=== PATIENT | male | born 1960 ===

== ENCOUNTER 2017-12-16 17:56 | Inpatient (IN) | payer OTHER ==
[2017-12-16 18:00] VITALS: BMI 29.9
[2017-12-16 18:44] LABS: BASO # 0.03 K/mm3 (0.0-2.0); BASO % 0.2 % (0.0-3.0); EOS # 0.5 (0.0-0.7); EOS % 3.6 % (1.5-5.0); GRAN # 9.78 (1.4-6.5); HEMOGLOBIN 8.6 g/dL (14.0-18.0); LYMPH # 1.5 (1.2-3.4); LYMPH % 12.1 % (22.0-35.0); MEAN CELL VOLUME 83.4 fl (80.0-105.0); MEAN CORPUSCULAR HGB CONC 32.3 g/dl (31.0-37.0); MEAN PLATELET VOLUME 9.5 fl (7.0-11.0); MONO # 0.8 (0.1-0.6); MONO % 6.1 % (1.0-6.0); RBC 3.19 10^6/uL (3.5-6.1); RED CELL DISTRIBUTION WIDTH 15.5 % (11.5-14.5); WHITE BLOOD COUNT 12.5 10^3/ul (4.5-11.0)
[2017-12-16] MEDS ORDERED: Vancomycin 2 GM in Sodium Chloride 0.9% 500 ML IVPB ONE (18:53)
[2017-12-16] MEDS ORDERED: Cefepime IV 2 gm in NS 2 GM/100 ML BAG IVPB STA (18:53)
--- NOTE | 2017-12-16 18:53 | ED PDOC ---
Arrival/HPI - General Historian: Patient, Family (Daughter) - History of Present Illness Time/Duration: Other (2 days) Symptom Onset: Gradual Symptom Course: Worsening <Gerald Fraser - Last Filed: 12/16/17 20:38> <Taylor Mitchell - Last Filed: 12/16/17 22:02> - General Chief Complaint: Cough, Cold, Congestion Time Seen by Provider: 12/16/17 18:06 - History of Present Illness Narrative History of Present Illness (Text): 12/16/17 19:52 This is a 57 yo M with PMH of DMII on insulin, HTN, HLD, anemia, and CAD/OK s/p CABG (3 yrs prior) who presents with complaints of fever, malaise, weakness, shortness of breath x2 days. As per daughter, patient is a [place] who is visiting her in [place], flew up 2 days prior, was being treating for ear infection at time of travel by his PMD in [place]. Daughter reports that since arrival, patient has complained of malaise, weakness, and worsening shortness of breath. Also reports subjective fever at home yesterday, never measured. Overnight, he coughed up a dark red blood clot the size of a quarter, no further episodes of hemoptysis or hematemesis. Denies nausea, emesis, PO intolerance, but does admit to melena for several days, and then later admitted to NSAID usage for last 2-3 days for ear pain. Does admit to history of anemia , on plavix for CABG, and does admit to taking Motrin several times a day for last 2 days due to ear pain. Dyspnic on exertion and at rest, denies room spinning sensation, dizziness, near syncope, syncope. As per daughter, so dyspnic today that had to bend over and catch his breath walking from the car to the ED entrance. No LE edema or asymmetrical swelling/erythema/tenderness. All other ROS in 12-system review negative. Of note, found to have temp of 102.8F on arrival, improved to 100F with tylenol. PMH: as above PSH: CABG Fam Hx: unsure, denies fam hx of GI bleed Soc Hx: intermittent rare cigarette (less than 1 pack per month, intermittently , for approx 5 years), admits social EtOH (denies any binge episodes in last 4 weeks), denies illicits/IVDA PMD: has PMD in [place], follows regularly, last saw 1 week ago for ear ache /fullness and was tx with oral antibiotic (Gerald Fraser) Modifying Factors (Text): 12/16/17 20:46 worsening fatigue, malaise, shortness of breath progressively over 2 days ( Gerald Fraser) Past Medical History - Provider Review Nursing Documentation Reviewed: Yes - Infectious Disease Hx of Infectious Diseases: None - Cardiac Hx Hypertension: Yes - Endocrine/Metabolic Hx Diabetes Mellitus Type 1: Yes - Psychiatric Hx Substance Use: No - Surgical History Hx Open Heart Surgery: Yes Other/Comment: R shoulder surgery - Anesthesia Hx Anesthesia Reactions: No Hx Malignant Hyperthermia: No <Gerald Fraser - Last Filed: 12/16/17 20:38> Family/Social History - Physician Review Nursing Documentation Reviewed: Yes Family/Social History: Unknown Family HX (negative for any hx of GI bleed) Smoking Status: Former Smoker Hx Alcohol Use: Yes Frequency of alcohol use: Socially Hx Substance Use: No <Gerald Fraser - Last Filed: 12/16/17 20:38> Allergies/Home Meds <Gerald Fraser - Last Filed: 12/16/17 20:38> <Taylor Mitchell - Last Filed: 12/16/17 22:02> Allergies/Adverse Reactions: Allergies No Known Allergies Allergy (Verified 12/16/17 17:59) Home Medications: Home Meds Medication Instructions Recorded Confirmed Atorvastatin [Lipitor] 40 mg PO DAILY 12/16/17 12/16/17 Clopidogrel [Plavix] 75 mg PO DAILY 12/16/17 12/16/17 Review of Systems - Physician Review All systems were reviewed & negative as marked: Yes (as per HPI) - Review of Systems Constitutional: Fatigue, Fevers. absent: Normal Eyes: absent: Vision Changes ENT: absent: Sore Throat, Epistaxis Respiratory: SOB, Cough, Other (1x quarter sized dark blood clot coughed up, night prior to admission only, no bright red blood). absent: Sputum, Wheezing Cardiovascular: VANEGAS. absent: Chest Pain, Palpitations, Calf Pain, Syncope Gastrointestinal: Nausea, Other (Melena intermittently x2-3 days). absent: Abdominal Pain, Vomiting, Hematochezia, Hematemesis Genitourinary Male: Normal. absent: Dysuria, Frequency, Hematuria Musculoskeletal: Myalgias, Other (malaise, generalized weakness). absent: Neck Pain Skin: absent: Rash, Pruritis Neurological: absent: Focal Weakness, Gait Changes <Gerald Fraser - Last Filed: 12/16/17 20:38> Physical Exam Vital Signs Reviewed: Yes Temperature: Febrile Blood Pressure: Hypertensive Pulse: Tachycardic (tachy on arrival, normocardic on exam in low 90's) Respiratory Rate: Normal Appearance: Positive for: Non-Toxic, Ill-Appearing, Uncomfortable Pain Distress: Mild Mental Status: Positive for: Alert and Oriented X 3 (self, location, year) Finger Stick Blood Glucose: 270 - Systems Exam Head: Present: Atraumatic, Normocephalic Pupils: Present: PERRL. No: Pinpoint Extroacular Muscles: Present: EOMI Conjunctiva: Present: Normal. No: Injected, Icteric Mouth: Present: Dry, Normal Lips, Normal Tounge, Normal Teeth. No: Moist Mucous Membranes, Drooling Nose (External): Present: Atraumatic. No: Abrasion, Laceration Nose (Internal): Present: No Active Bleeding. No: Epistaxis Neck: Present: Normal Range of Motion, Trachea Midline. No: MIDLINE TENDERNESS , JVD Respiratory/Chest: Present: Clear to Auscultation, Good Air Exchange. No: Respiratory Distress, Accessory Muscle Use, Wheezes, Decreased Breath Sounds, Rales, Rhonchi, Tachypneic Cardiovascular: Present: Regular Rate and Rhythm, Normal S1, S2, Peripheal Pulses Present (+2 radials, +1 dorsalis pedis bilaterally). No: Murmurs, Irregular Rhythm, Tachycardic, Bradycardic Abdomen: Present: Normal Bowel Sounds. No: Tenderness (mild static discomfort, no tenderness to palpation), Distention, Mass/Organomegaly Upper Extremity: Present: Normal Inspection, Normal ROM, NORMAL PULSES. No: Cyanosis, Edema, Tenderness, Swelling, Erythema, Deformity Lower Extremity: Present: Normal Inspection, NORMAL PULSES, Normal ROM. No: Edema, CALF TENDERNESS, Cyanosis, Tenderness, Swelling, Erythema, Deformity Neurological: Present: GCS=15, Speech Normal, Motor Func Grossly Intact, Normal Sensory Function Skin: Present: Warm, Dry, Pale. No: Rashes, Normal Color Lymphatic: No: Cervical Adenopathy Psychiatric: Present: Alert, Oriented x 3, Normal Insight, Normal Concentration , Normal Affect, Normal Mood <Gerald Fraser - Last Filed: 12/16/17 20:38> <Taylor Mitchell - Last Filed: 12/16/17 22:02> Vital Signs Temp Pulse Resp BP Pulse Ox 12/16/17 20:00 100 F H 98 H 16 132/68 98 12/16/17 18:33 102.8 F H 12/16/17 17:57 102.8 F H 120 H 22 159/77 H 99 Medical Decision Making Reassessment Condition: Re-examined, Unchanged <Gerald Fraser - Last Filed: 12/16/17 20:38> <Taylor Mitchell - Last Filed: 12/16/17 22:02> ED Course and Treatment: 12/16/17 20:08 Ddx: Upper vs lower GI bleed 2/2 plavix +/- NSAID use, r/o sepsis given fever, r /o PE given recent flight and coughing up a blood clot -CBC obtained, concerning for WBC of 12.5, Hgb 8.6, but in setting of dry appearing patient and BUN:Cr ratio suggestive of mild dehydration, real Hgb likely lower, will need to transfuse given melanotic stool and hx of CABG, goal Hgb is 9-10. Type and cross ordered, blood consent obtained, pending transfusion 2 units pRBCs. -Protonix IV 80mg IVP x1 for suspected GI bleed, NPO -Lactate 3.0, fever, and tachy on arrival with recent ear infection concerning for sepsis, CODE Sepsis called, empirically covered with Vanco and Cefepime IVPB x1 each -Given blood clot and recent air travel, CTA chest ordered to rule out PE, Cr 1.0 so safe for dye challenge -2L LR bolus ordered 12/16/17 21:02 Case discussed with Admitting Physician non destructive evaluation specialist, Dr. Fung, who agrees with admission for suspected GI bleed requiring transfusion. Requests Dr. Coe for GI consult, Protonix and IV fluids, NPO. Inpatient admission to telemetry as hemodynamically stable and not actively passing blood per rectum. Patient seen, reviewed, and discussed with attending, Dr. Mitchell. (Gerald Fraser) - Lab Interpretations Lab Results: 12/16/17 18:18 12/16/17 18:18 Lab Results 12/16/17 20:31: Blood Type O POSITIVE, Antibody Screen Negative, Crossmatch See Detail, BBK History Checked No verified bt 12/16/17 18:43: Urine Color Yellow, Urine Appearance Clear, Urine pH 6.0, Ur Specific [place] 1.010, Urine Protein Negative, Urine Glucose (UA) >=1000, Urine Ketones Negative, Urine Blood Small H, Urine Nitrate Negative, Urine Bilirubin Negative, Urine Urobilinogen 0.2, Ur Leukocyte Esterase Negative, Urine RBC 5 - 10, Urine WBC 10 - 15, Ur Epithelial Cells 0 - 2, Urine Bacteria Few 12/16/17 18:23: POC Glucose (mg/dL) 270 H 12/16/17 18:18: Sodium 134, Chloride 99, Potassium 3.8, Carbon Dioxide 22, Anion Gap 17, BUN 21, Creatinine 1.0, Est GFR ( Amer) > 60, Est GFR (Non- Af Amer) > 60, Random Glucose 310 H*, Calcium 8.1 L, Phosphorus 1.9 L, Magnesium 2.2, Total Bilirubin 0.5, AST 88 H, ALT 77 H, Alkaline Phosphatase 200 H, Troponin I < 0.01, NT-Pro-B Natriuret Pep 190, Total Protein 8.2, Albumin 3.6, Globulin 4.6, Albumin/Globulin Ratio 0.8 L 12/16/17 18:18: pO2 36, VBG pH 7.34, VBG pCO2 45.0, VBG HCO3 24.3, VBG Total CO2 25.7, VBG O2 Sat (Calc) 74.9 H, VBG Base Excess -1.7 L, VBG Potassium 3.7, Sodium 132.0, Chloride 100.0, Glucose 326 H, Lactate 3.0 H, FiO2 21.0, Venous Blood Potassium 3.7 12/16/17 18:18: PT 15.4 H, INR 1.34 H, APTT 25.8 12/16/17 18:18: WBC 12.5 H, RBC 3.19 L, Hgb 8.6 L, Hct 26.6 L, MCV 83.4, MCH 27.0, MCHC 32.3, RDW 15.5 H, Plt Count 184, MPV 9.5, Gran % 78.0 H, Lymph % ( Auto) 12.1 L, [place] % (Auto) 6.1 H, Eos % (Auto) 3.6, Baso % (Auto) 0.2, Gran # 9.78 H, Lymph # (Auto) 1.5, [place] # (Auto) 0.8 H, Eos # (Auto) 0.5, Baso # (Auto ) 0.03 - RAD Interpretation Radiology Orders: 12/16/17 18:09 CHEST PORTABLE [RAD] Stat 12/16/17 20:11 ANGIO CHEST PE PROTOCOL [CT] Stat - Medication Orders Current Medication Orders: Lactated Ringer's (Lactated Ringer's) 1,000 mls @ 999 mls/hr IV .Q1H1M MARYANNE Last Admin: 12/16/17 19:51 Dose: 999 mls/hr eMAR Start Stop Document 12/16/17 19:51 RG (Rec: 12/16/17 19:57 RG [id number]) Intravenous Solution Start Date 12/16/17 Start Time 19:51 Sodium Chloride (Sodium Chloride 0.9%) 1,000 mls @ 125 mls/hr IV .Q8H MARYANNE Pantoprazole Sodium (Protonix Inj) 40 mg IVP Q12 MARYANNE Discontinued Medications Acetaminophen (Tylenol 325mg Tab) 975 mg PO STAT STA Stop: 12/16/17 18:14 Last Admin: 12/16/17 18:33 Dose: 975 mg MAR Pain/Vitals Document 12/16/17 18:33 OCS (Rec: 12/16/17 18:33 OCS [id number]) Pain Reassessment Is This A Pain ReAssessment? No Sleep Is patient sleeping during reassessment? No Presence of Pain Presence of Pain Yes Pain Scale Used Pain Scale Used Numeric Location Pain Location Body Site Abdomen Description Constant Intensity 3 Scale Used Numeric Vitals Temperature (97.6 F-99.6 F) 102.8 F Temperature Source Oral Lactated Ringer's 1,000 ml/ IV (SUPPLIES) 1,000 mls @ 81,565.35 mls/hr IV ONCE ONE PRN Reason: 999 ML/KG/HR Stop: 12/16/17 18:10 Last Admin: 12/16/17 18:31 Dose: 81,565.35 mls/hr eMAR Start Stop Document 12/16/17 18:31 OCS (Rec: 12/16/17 18:31 OCS [id number]) Intravenous Solution Start Date 12/16/17 Start Time 18:31 Cefepime HCl (Maxipime 2gm) 2 gm in 100 mls @ 100 mls/hr IVPB STAT STA PRN Reason: Protocol Stop: 12/16/17 19:52 Last Admin: 12/16/17 19:15 Dose: 100 mls/hr eMAR Start Stop Document 12/16/17 19:15 RG (Rec: 12/16/17 19:26 RG [id number]) Intravenous Solution Start Date 12/16/17 Start Time 19:15 Vancomycin HCl 2 gm/ Sodium (Chloride) 500 mls @ 170 mls/hr IVPB ONCE ONE PRN Reason: Protocol Stop: 12/16/17 21:49 Last Admin: 12/16/17 19:50 Dose: 170 mls/hr eMAR Start Stop Document 12/16/17 19:50 RG (Rec: 12/16/17 19:50 RG [id number]) Intravenous Solution Start Date 12/16/17 Start Time 19:50 Pantoprazole Sodium (Protonix Inj) 80 mg IVP STAT STA Stop: 12/16/17 20:16 - PA / SAWMILL SUPERVISOR / Resident Statement / has reviewed & agrees with the documentation as recorded. <Taylor Mitchell - Last Filed: 12/16/17 22:02> Disposition/Present on Arrival - Present on Arrival Any Indicators Present on Arrival: No History of DVT/PE: No History of Uncontrolled Diabetes: No Urinary Catheter: No History of Decub. Ulcer: No History Surgical Site Infection Following: CABG - Mediastinitis - Disposition Have Diagnosis and Disposition been Completed?: Yes Disposition Time: 21:22 Patient Plan: Admission, Telemetry <Gerald Fraser - Last Filed: 12/16/17 20:38> <Taylor Mitchell - Last Filed: 12/16/17 22:02> - Disposition Diagnosis: GI bleed, Symptomatic anemia Disposition: HOSPITALIZED Condition: GUARDED
[2017-12-16 18:59] LABS: URINE BILIRUBIN NEGATIVE (NEGATIVE); URINE BLOOD SMALL (NEGATIVE); URINE GLUCOSE (UA) >=1000 mg/dL (NEGATIVE); URINE LEUKOCYTE ESTERASE NEGATIVE Leu/uL (NEGATIVE); URINE PROTEIN NEGATIVE mg/dL (<30 mg/dL); URINE UROBILINOGEN 0.2 E.U./dL (<1 E.U./dL)
[2017-12-16 19:00] LABS: VENOUS BLOOD GAS BASE EXCESS -1.7 mmol/L (0.0-2.0); VENOUS BLOOD GAS PO2 36 mm/Hg (30-55); VENOUS BLOOD PH 7.34 (7.32-7.43)
[2017-12-16 19:08] LABS: INR 1.34 (0.93-1.08); PARTIAL THROMBOPLASTIN TIME 25.8 Seconds (25.1-36.5); PROTHROMBIN TIME 15.4 SECONDS (9.4-12.5)
[2017-12-16 19:08] LABS: URINE APPEARANCE CLEAR (CLEAR); URINE COLOR YELLOW (YELLOW)
[2017-12-16 19:15] LABS: URINE BACTERIA FEW (NEG); URINE EPITHELIAL CELLS 0 - 2 /hpf (0-5)
[2017-12-16 19:18] LABS: ALB/GLOB RATIO 0.8 (1.1-1.8); ALBUMIN 3.6 g/dL (3.0-4.8); ALT/SGPT 77 U/L (7-56); AST/SGOT 88 U/L (17-59); B-TYPE NATRIURETIC PEPTIDE 190 pg/mL (0-450); BLOOD UREA NITROGEN 21 mg/dL (7-21); CALCIUM 8.1 mg/dL (8.4-10.5); GFR NON-AFRICAN AMERICAN > 60; TROPONIN I < 0.01 ng/mL
[2017-12-16] MEDS ORDERED: Lactated Ringer's 1,000 ML IV SCH (19:45)
[2017-12-16] MEDS ORDERED: Iohexol 350 MG/100 ML VIAL ONE (20:16)
[2017-12-16] MEDS: Sodium Chloride 0.9% 1,000 ML IV SCH (20:59)
[2017-12-16 22:08] LABS: VENOUS BLOOD GAS BASE EXCESS 1.8 mmol/L (0.0-2.0); VENOUS BLOOD GAS PO2 175 mm/Hg (30-55); VENOUS BLOOD PH 7.45 (7.32-7.43)
[2017-12-16] MEDS ORDERED: Alum-Mag Hydrox-Simethicone Susp (30 mL) PO ONE (23:59)
--- NOTE | 2017-12-17 04:08 | CP.PCM.PN ---
Subjective - Date & Time of Evaluation Date of Evaluation: 12/17/17 Time of Evaluation: 04:04 - Subjective Subjective: Patient was seen for 100.8*F. Had received tylenol 975 mg at 19:33 for temp: 102.8*F. Still had temp of 100.8*F. Patient was seen at bedside. Has no complaints. No sob, chest pain. Medical record was reviewed. This 57 year old woman was admitted with fever, sob, malaise,weakness,anemia,GI bleeding. Has PMH of HTN, DMII, HLD, obeisity, anemia, CAD, S/P CABG. Objective - Vital Signs/Intake and Output Vital Signs (last 24 hours): Temp Pulse Resp BP Pulse Ox 98.3 F 73 16 132/64 98 12/17/17 03:39 12/17/17 03:39 12/17/17 03:39 12/17/17 03:39 12/16/17 20:00 Intake and Output: 12/16/17 12/17/17 18:59 06:59 Intake Total 300 Balance 300 - Medications Medications: Current Medications Lactated Ringer's (Lactated Ringer's) 1,000 mls @ 999 mls/hr IV .Q1H1M [facility] Last Admin: 12/16/17 19:51 Dose: 999 mls/hr Sodium Chloride (Sodium Chloride 0.9%) 1,000 mls @ 125 mls/hr IV .Q8H [facility] Last Admin: 12/16/17 20:59 Dose: 125 mls/hr Pantoprazole Sodium (Protonix Inj) 40 mg IVP Q12 [facility] - Labs Labs: PT 15.4 SECONDS (9.4-12.5) H 12/16/17 18:18 INR 1.34 (0.93-1.08) H 18 18:18 APTT 25.8 Seconds (25.1-36.5) 12/16/17 18:18 Most Recent Lab Values WBC 12.5 10^3/ul (4.5-11.0) H 12/16/17 18:18 RBC 3.19 10^6/uL (3.5-6.1) L 12/16/17 18:18 Hgb 8.6 g/dL (14.0-18.0) L 06/17/18 18:18 Hct 26.6 % (42.0-52.0) L 12/16/17 18:18 MCV 83.4 fl (80.0-105.0) 12/16/17 18:18 MCH 27.0 pg (25.0-35.0) 18 18:18 MCHC 32.3 g/dl (31.0-37.0) 12/16/17 18:18 RDW 15.5 % (11.5-14.5) H 18 18:18 Plt Count 184 10^3/uL (120.0-450.0) 12/16/17 18:18 MPV 9.5 fl (7.0-11.0) 12/16/17 18:18 Gran % 78.0 % (50.0-68.0) H 18 18:18 Lymph % (Auto) 12.1 % (22.0-35.0) L 12/16/17 18:18 Major % (Auto) 6.1 % (1.0-6.0) H 18 18:18 Eos % (Auto) 3.6 % (1.5-5.0) 18 18:18 Baso % (Auto) 0.2 % (0.0-3.0) 12/16/17 18:18 Gran # 9.78 (1.4-6.5) H 18 18:18 Lymph # (Auto) 1.5 (1.2-3.4) 12/16/17 18:18 Major # (Auto) 0.8 (0.1-0.6) H 18 18:18 Eos # (Auto) 0.5 (0.0-0.7) 12/16/17 18:18 Baso # (Auto) 0.03 K/mm3 (0.0-2.0) 18 18:18 PT 15.4 SECONDS (9.4-12.5) H 18 18:18 INR 1.34 (0.93-1.08) H 18 18:18 APTT 25.8 Seconds (25.1-36.5) 12/16/17 18:18 pO2 175 mm/Hg (30-55) H 12/16/17 21:57 VBG pH 7.45 (7.32-7.43) H 12/16/17 21:57 VBG pCO2 37.0 (40-60) L 12/16/17 21:57 VBG HCO3 25.7 mmol/l (21-28) 12/16/17 21:57 VBG Total CO2 26.8 mmol.L (22-28) 12/16/17 21:57 VBG O2 Sat (Calc) 100.1 % (40-65) H 12/16/17 21:57 VBG Base Excess 1.8 mmol/L (0.0-2.0) 12/16/17 21:57 VBG Potassium 3.4 mmol/L (3.6-5.2) L 12/16/17 21:57 Sodium 135.0 mmol/L (132-148) 12/16/17 21:57 Chloride 107.0 mmol/L (98-107) 12/16/17 21:57 Glucose 114 mg/dl (75-110) H 12/16/17 21:57 Lactate 1.3 mmol/L (0.7-2.1) 12/16/17 21:57 FiO2 21.0 % 12/16/17 21:57 Sodium 134 mmol/L (132-148) 12/16/17 18:18 Potassium 3.8 mmol/L (3.6-5.0) 12/16/17 18:18 Chloride 99 mmol/L (98-107) 12/16/17 18:18 Carbon Dioxide 22 mmol/L (21-33) 12/16/17 18:18 Anion Gap 17 (10-20) 12/16/17 18:18 BUN 21 mg/dL (7-21) 12/16/17 18:18 Creatinine 1.0 mg/dl (0.8-1.5) 12/16/17 18:18 Est GFR ( Amer) > 60 12/16/17 18:18 Est GFR (Non-Af Amer) > 60 18 18:18 POC Glucose (mg/dL) 270 mg/dL (65-110) H 12/16/17 18:23 Random Glucose 310 mg/dL (70-110) H* 12/16/17 18:18 Calcium 8.1 mg/dL (8.4-10.5) L 12/16/17 18:18 Phosphorus 1.9 mg/dL (2.5-4.5) L 12/16/17 18:18 Magnesium 2.2 mg/dL (1.7-2.2) 12/16/17 18:18 Total Bilirubin 0.5 mg/dL (0.2-1.3) 12/16/17 18:18 AST 88 U/L (17-59) H 12/16/17 18:18 ALT 77 U/L (7-56) H 12/16/17 18:18 Alkaline Phosphatase 200 U/L (38-126) H 12/16/17 18:18 Troponin I < 0.01 ng/mL 12/16/17 18:18 NT-Pro-B Natriuret Pep 190 pg/mL (0-450) 12/16/17 18:18 Total Protein 8.2 g/dL (5.8-8.3) 12/16/17 18:18 Albumin 3.6 g/dL (3.0-4.8) 12/16/17 18:18 Globulin 4.6 gm/dL 12/16/17 18:18 Albumin/Globulin Ratio 0.8 (1.1-1.8) L 12/16/17 18:18 Venous Blood Potassium 3.4 mmol/L (3.6-5.2) L 12/16/17 21:57 Urine Color Yellow (YELLOW) 12/16/17 18:43 Urine Appearance Clear (CLEAR) 12/16/17 18:43 Urine pH 6.0 (4.7-8.0) 12/16/17 18:43 Ur Specific [place] 1.010 (1.005-1.035) 12/16/17 18:43 Urine Protein Negative mg/dL (<30 mg/dL) 12/16/17 18:43 Urine Glucose (UA) >=1000 mg/dL (NEGATIVE) 12/16/17 18:43 Urine Ketones Negative mg/dL (NEGATIVE) 12/16/17 18:43 Urine Blood Small (NEGATIVE) H 12/16/17 18:43 Urine Nitrate Negative (NEGATIVE) 12/16/17 18:43 Urine Bilirubin Negative (NEGATIVE) 12/16/17 18:43 Urine Urobilinogen 0.2 E.U./dL (<1 E.U./dL) 12/16/17 18:43 Ur Leukocyte Esterase Negative Ymailex/uL (NEGATIVE) 12/16/17 18:43 Urine RBC 5 - 10 /hpf (0-2) 12/16/17 18:43 Urine WBC 10 - 15 /hpf (0-6) 12/16/17 18:43 Ur Epithelial Cells 0 - 2 /hpf (0-5) 12/16/17 18:43 Urine Bacteria Few (NEG) 12/16/17 18:43 Blood Type O POSITIVE 12/16/17 20:31 Blood Type Confirm O POSITIVE 12/16/17 20:57 Antibody Screen Negative 12/16/17 20:31 Crossmatch See Detail 12/16/17 20:31 BBK History Checked No verified bt 12/16/17 20:31 - Constitutional Appears: Well, No Acute Distress - Head Exam Head Exam: ATRAUMATIC, NORMAL INSPECTION, NORMOCEPHALIC - Eye Exam Eye Exam: Normal appearance - ENT Exam ENT Exam: Normal External Ear Exam - Neck Exam Neck Exam: Normal Inspection - Respiratory Exam Respiratory Exam: NORMAL BREATHING PATTERN - Cardiovascular Exam Cardiovascular Exam: absent: JVD - GI/Abdominal Exam GI & Abdominal Exam: absent: Distended - Rectal Exam Rectal Exam: NORMAL INSPECTION - Exam Exam: NORMAL INSPECTION Additional comments: Deferred. - Extremities Exam Extremities Exam: Normal Inspection - Back Exam Back Exam: NORMAL INSPECTION - Neurological Exam Neurological Exam: Alert, Awake, Oriented x3 - Psychiatric Exam Psychiatric exam: Normal Affect, Normal Mood - Skin Skin Exam: Normal Color Assessment and Plan - Assessment and Plan (Free Text) Assessment: Fever not helped by tylenol 975 mg . Anemia. GI bleeding. HTN. HLD. DM II. CAD. Plan: Motrin with mylanta(One time only.) Continue blood transfusion. Continue present management.
[2017-12-17] MEDS ORDERED: Sodium Phosphate 15 MMOLE in Dextrose 5% In Water 250 ML IVPB ONE (04:15)
--- NOTE | 2017-12-17 06:43 | CP.PCM.CON ---
<Petty Villanueva - Last Filed: 12/17/17 10:19> History of Present Illness - History of Present Illness History of Present Illness: GI Consult Note for Nikko Anand PGY2 This is a 57yo [place] male with past medical history of IDDM, CAD, HTN, HLD who came to ED for fever, weakness and shortness of breath for 2 days. He recently came in from [place] a couple of days ago. He was having subjective fevers at home and coughed up one clot of dark red blood once. Patient states he has had some dark colored stool. He was recently treated for an ear infection in [place]. He was on PO antibiotics (unsure of the name) and was taking NSAIDs for the pain. Patient is also on Plavix at home. He denies having a colonoscopy or EGD in the past. He does follow up with his PMD in [place] regularly. He denies any history of anemia or GI bleed. In ED, patient had CTA of chest which was negative for PE. He was given 2U PRBC. He had mild fever after blood transfusion, but is afebrile this am. CTA imaging reviewed which showed hepatomegaly. This am, patient denies chest pain, shortness of breath, abdominal pain, nausea/vomiting/diarrhea, fever/chills, numbness/tingling, melena, numbness/tingling, fever or chills. Patient does come from [place] where medical resources are harder to obtain at this time. He does not have any insulin at home. Past medical history: IDDM, CAD, HTN, HLD Past surgical history: CABG (3yrs ago) Home meds: Reviewed as per MAR. Patient reports he takes more medications but is unsure of the names. Allergies: NKDA Social history: Lives in [place]. Drinks EtOH socially, Intermittent tobacco use, denies illicit drug use. Family history: Patient denies hx of cancer in his family Review of Systems - Review of Systems All systems: reviewed and no additional remarkable complaints except Review of Systems: 12 point ROS reviewed as per HPI and are otherwise negative. Past Patient History - Infectious Disease Hx of Infectious Diseases: None - Past Social History Smoking Status: Never Smoked - CARDIAC Hx Hypertension: Yes - ENDOCRINE/METABOLIC Hx Diabetes Mellitus Type 1: Yes - MUSCULOSKELETAL/RHEUMATOLOGICAL Hx Falls: No - PSYCHIATRIC Hx Substance Use: No - SURGICAL HISTORY Hx Open Heart Surgery: Yes Other/Comment: R shoulder surgery - ANESTHESIA Hx Anesthesia Reactions: No Hx Malignant Hyperthermia: No Meds Allergies/Adverse Reactions: Allergies Allergy/AdvReac Type Severity Reaction Status Date / Time No Known Allergies Allergy Verified 12/16/17 17:59 - Medications Medications: Current Medications Lactated Ringer's (Lactated Ringer's) 1,000 mls @ 999 mls/hr IV .Q1H1M MARYANNE Last Admin: 12/16/17 19:51 Dose: 999 mls/hr Sodium Chloride (Sodium Chloride 0.9%) 1,000 mls @ 125 mls/hr IV .Q8H [facility] Last Admin: 12/16/17 20:59 Dose: 125 mls/hr Sodium Phosphate 15 mmole/ (Dextrose) 255 mls @ 42.5 mls/hr IVPB ONCE ONE Stop: 12/17/17 10:14 Last Admin: 12/17/17 05:57 Dose: 42.5 mls/hr Pantoprazole Sodium (Protonix Inj) 40 mg IVP Q12 [facility] Physical Exam - Constitutional Appears: No Acute Distress - Head Exam Head Exam: ATRAUMATIC, NORMAL INSPECTION, NORMOCEPHALIC - Eye Exam Eye Exam: Normal appearance, PERRL Pupil Exam: NORMAL ACCOMODATION, PERRL - ENT Exam ENT Exam: Mucous Membranes Moist - Respiratory Exam Respiratory Exam: Clear to Auscultation Bilateral, NORMAL BREATHING PATTERN. absent: Rales, Rhonchi, Wheezes - Cardiovascular Exam Cardiovascular Exam: REGULAR RHYTHM, +S1, +S2. absent: Gallop, Rubs, Systolic Murmur - GI/Abdominal Exam GI & Abdominal Exam: Normal Bowel Sounds, Organomegaly (hepatomegaly ), Soft, Tenderness (mild epigastric ). absent: Mass, Rigid - Extremities Exam Extremities exam: Positive for: pedal edema. Negative for: calf tenderness - Neurological Exam Neurological exam: Alert, CN II-XII Intact - Skin Skin Exam: Dry, Warm Results - Vital Signs Recent Vital Signs: Last Vital Signs Temp 98.3 F 12/17/17 06:00 Pulse 72 12/17/17 06:00 Resp 16 12/17/17 06:00 BP 126/75 12/17/17 06:00 Pulse Ox 99 12/17/17 06:00 - Labs Result Diagrams: 12/17/17 07:30 12/17/17 07:30 Labs: Laboratory Results - last 24 hr 12/16/17 12/16/17 20:57 21:57 pO2 175 H VBG pH 7.45 H VBG pCO2 37.0 L VBG HCO3 25.7 VBG Total CO2 26.8 VBG O2 Sat (Calc) 100.1 H VBG Base Excess 1.8 VBG Potassium 3.4 L Sodium 135.0 Chloride 107.0 Glucose 114 H Lactate 1.3 FiO2 21.0 Venous Blood Potassium 3.4 L Blood Type Confirm O POSITIVE Assessment & Plan - Assessment and Plan (Free Text) Assessment: This is a 57yo [place] male with past medical history of IDDM, CAD, HTN, HLD who was admitted for 1. Anemia - Can be secondary to GI bleed (pt using NSAID at home) - S/p 2U PRBC 2. Transaminitis - with elevated alk phos - this can be drug induced 3. CAD on Plavix 4. HTN 5. IDDM Plan: Will obtain abdominal U/S. Will get iron studies, reticulocyte count, B12 and folate levels of Pre-transfusion bloodwork. Hep panel pending. Will place patient on insulin sliding scale for IDDM. Will get ict educator for lack of insulin at home as well as education. Patient is NPO and on IV fluids. Continue PPI. Plan is for EGD tomorrow. Recommend cardiology consult for risk assessment for EGD. Will continue to monitor H/H. Case seen, discussed and reviewed with Dr. Coe. Nikko Villanueva PGY2 - Date & Time Date: 12/17/17 Time: 10:38 <Josseline Coe V - Last Filed: 12/17/17 19:14> Meds - Medications Medications: Current Medications Acetaminophen (Tylenol 325mg Tab) 650 mg PO Q6H PRN PRN Reason: Fever >100.4 F Last Admin: 12/17/17 13:56 Dose: 650 mg Atorvastatin Calcium (Lipitor) 40 mg PO DAILY MARYANNE Sodium Chloride (Sodium Chloride 0.9%) 1,000 mls @ 100 mls/hr IV .Q10H [facility]NE Insulin Human Lispro (Humalog Med) 0 units SC ACHS MARYANNE PRN Reason: Protocol Last Admin: 12/17/17 18:27 Dose: 5 unit Pantoprazole Sodium (Protonix Inj) 40 mg IVP Q12 [facility] Last Admin: 12/17/17 09:28 Dose: 40 mg Polyethylene Glycol (Miralax) 17 gm PO BID MARYANNE Last Admin: 12/17/17 18:27 Dose: 17 gm Results - Vital Signs Recent Vital Signs: Last Vital Signs Temp 98.9 F 12/17/17 18:00 Pulse 97 H 12/17/17 18:00 Resp 21 12/17/17 18:00 BP 161/96 H 12/17/17 18:00 Pulse Ox 99 12/17/17 06:00 - Labs Result Diagrams: 12/17/17 07:30 12/17/17 07:30 Labs: Laboratory Results - last 24 hr 12/16/17 12/16/17 12/17/17 20:57 21:57 07:30 WBC 10.9 RBC 3.57 Hgb 10.0 L Hct 30.1 L MCV 84.3 MCH 28.0 MCHC 33.2 RDW 15.5 H Plt Count 147 MPV 8.9 Gran % 69.8 H Lymph % (Auto) 11.6 L Mcnairy % (Auto) 9.8 H Eos % (Auto) 8.3 H Baso % (Auto) 0.5 Gran # 7.62 H Lymph # (Auto) 1.3 Mcnairy # (Auto) 1.1 H Eos # (Auto) 0.9 H Baso # (Auto) 0.05 Retic Count pO2 175 H VBG pH 7.45 H VBG pCO2 37.0 L VBG HCO3 25.7 VBG Total CO2 26.8 VBG O2 Sat (Calc) 100.1 H VBG Base Excess 1.8 VBG Potassium 3.4 L Sodium 135.0 Chloride 107.0 Glucose 114 H Lactate 1.3 FiO2 21.0 Potassium Carbon Dioxide Anion Gap BUN Creatinine Est GFR ( Amer) Est GFR (Non-Af Amer) POC Glucose (mg/dL) Random Glucose Hemoglobin A1c Calcium Iron TIBC % Saturation Ferritin Total Bilirubin AST ALT Alkaline Phosphatase Total Protein Albumin Globulin Albumin/Globulin Ratio Vitamin B12 Folate Venous Blood Potassium 3.4 L Hepatitis A IgM Ab Hep Bs Antigen Hep B Core IgM Ab Hepatitis C Antibody Blood Type Confirm O POSITIVE 12/17/17 12/17/17 12/17/17 07:30 07:30 10:35 WBC RBC Hgb Hct MCV MCH MCHC RDW Plt Count MPV Gran % Lymph % (Auto) Mcnairy % (Auto) Eos % (Auto) Baso % (Auto) Gran # Lymph # (Auto) Mcnairy # (Auto) Eos # (Auto) Baso # (Auto) Retic Count pO2 VBG pH VBG pCO2 VBG HCO3 VBG Total CO2 VBG O2 Sat (Calc) VBG Base Excess VBG Potassium Sodium 142 Chloride 109 H Glucose Lactate FiO2 Potassium 3.8 Carbon Dioxide 23 Anion Gap 13 BUN 15 Creatinine 0.9 Est GFR ( Amer) > 60 Est GFR (Non-Af Amer) > 60 POC Glucose (mg/dL) Random Glucose 131 H Hemoglobin A1c 10.1 H Calcium 7.6 L Iron TIBC % Saturation Ferritin Total Bilirubin 1.1 AST 49 ALT 60 H Alkaline Phosphatase 140 H D Total Protein 6.6 Albumin 2.6 L Globulin 4.1 Albumin/Globulin Ratio 0.6 L Vitamin B12 Folate Venous Blood Potassium Hepatitis A IgM Ab Negative Hep Bs Antigen Negative Hep B Core IgM Ab Negative Hepatitis C Antibody Negative Blood Type Confirm 12/17/17 12/17/17 12/17/17 10:57 10:57 10:57 WBC RBC Hgb Hct MCV MCH MCHC RDW Plt Count MPV Gran % Lymph % (Auto) Mcnairy % (Auto) Eos % (Auto) Baso % (Auto) Gran # Lymph # (Auto) Mcnairy # (Auto) Eos # (Auto) Baso # (Auto) Retic Count 1.55 H pO2 VBG pH VBG pCO2 VBG HCO3 VBG Total CO2 VBG O2 Sat (Calc) VBG Base Excess VBG Potassium Sodium Chloride Glucose Lactate FiO2 Potassium Carbon Dioxide Anion Gap BUN Creatinine Est GFR ( Amer) Est GFR (Non-Af Amer) POC Glucose (mg/dL) Random Glucose Hemoglobin A1c Calcium Iron 29 L TIBC 301 % Saturation 10 L Ferritin 19.8 Total Bilirubin AST ALT Alkaline Phosphatase Total Protein Albumin Globulin Albumin/Globulin Ratio Vitamin B12 542 Folate 14.6 Venous Blood Potassium Hepatitis A IgM Ab Hep Bs Antigen Hep B Core IgM Ab Hepatitis C Antibody Blood Type Confirm 12/17/17 12/17/17 12:20 16:54 WBC RBC Hgb Hct MCV MCH MCHC RDW Plt Count MPV Gran % Lymph % (Auto) Mcnairy % (Auto) Eos % (Auto) Baso % (Auto) Gran # Lymph # (Auto) Mcnairy # (Auto) Eos # (Auto) Baso # (Auto) Retic Count pO2 VBG pH VBG pCO2 VBG HCO3 VBG Total CO2 VBG O2 Sat (Calc) VBG Base Excess VBG Potassium Sodium Chloride Glucose Lactate FiO2 Potassium Carbon Dioxide Anion Gap BUN Creatinine Est GFR ( Amer) Est GFR (Non-Af Amer) POC Glucose (mg/dL) 202 H 266 H Random Glucose Hemoglobin A1c Calcium Iron TIBC % Saturation Ferritin Total Bilirubin AST ALT Alkaline Phosphatase Total Protein Albumin Globulin Albumin/Globulin Ratio Vitamin B12 Folate Venous Blood Potassium Hepatitis A IgM Ab Hep Bs Antigen Hep B Core IgM Ab Hepatitis C Antibody Blood Type Confirm Attending/Attestation - Attestation I have personally seen and examined this patient.: Yes I have fully participated in the care of the patient.: Yes I have reviewed all pertinent clinical information: Yes Notes (Text): This is an addendum to GI consult report dictated by the Admission Nurse Coordinator.The patient was seen and examined earlier. Medical records, lab studies, imagings were reviewed. Last 24 hours events reviewed. Agreed with the above treatment plan as outlined in Admission Nurse Coordinator 's notes the with the addition of the following This 57-year-old patient with a history of diabetes, coronary artery disease dyslipidemia hypertension admitted with anemia cough and episode of hemoptysis CT of the chest was done which was red. Patient was found to be anemic iron deficiency pattern. Patient was on aspirin plavix for coronary artery disease. Recent history of use of antibiotics for the NSAID On examination abdomen soft there was hepalomegaly patient does have elevated ALK etiology unclear differential should includ drug- induced, chronic hepatitis, and steatohepatitis Large hepatomegaly involving both right and lobe . No focal lesion Recommend 1. Hepatitis profile 2. Ultrasound scan of the abn 3. PPI 4. Clear liquid diet 5. EGD in a.m. Since the patient is on Pld aspirin would consider a diagnostic workup now. thank you very much for allowing us to participate in in the care of the patient 12/17/17 19:06
[2017-12-17 07:39] LABS: BASO # 0.05 K/mm3 (0.0-2.0); BASO % 0.5 % (0.0-3.0); EOS # 0.9 (0.0-0.7); EOS % 8.3 % (1.5-5.0); GRAN # 7.62 (1.4-6.5); GRAN % 69.8 % (50.0-68.0); LYMPH # 1.3 (1.2-3.4); LYMPH % 11.6 % (22.0-35.0); MEAN CELL VOLUME 84.3 fl (80.0-105.0); MEAN CORPUSCULAR HGB CONC 33.2 g/dl (31.0-37.0); MEAN PLATELET VOLUME 8.9 fl (7.0-11.0); MONO # 1.1 (0.1-0.6); MONO % 9.8 % (1.0-6.0); RBC 3.57 10^6/uL (3.5-6.1); RED CELL DISTRIBUTION WIDTH 15.5 % (11.5-14.5); WHITE BLOOD COUNT 10.9 10^3/ul (4.5-11.0)
[2017-12-17 08:10] LABS: ALB/GLOB RATIO 0.6 (1.1-1.8); ALBUMIN 2.6 g/dL (3.0-4.8); ALT/SGPT 60 U/L (7-56); AST/SGOT 49 U/L (17-59); BLOOD UREA NITROGEN 15 mg/dL (7-21); CALCIUM 7.6 mg/dL (8.4-10.5); GFR NON-AFRICAN AMERICAN > 60
--- NOTE | 2017-12-17 08:23 | CT ---
PROCEDURE: CT Chest with contrast (Pulmonary Angiogram) CT Angiography Abdomen, Pelvis and Lower Extremity with Contrast HISTORY: hemoptysis COMPARISON: None available. TECHNIQUE: Axial computed tomography images were obtained of the chest in the pulmonary arterial phase of enhancement. Coronal and sagittal reformatted images were created and reviewed. Intravenous contrast dose: 100 cc of Omnipaque 350 Radiation dose: Total exam DLP = 423 mGy-cm. This CT exam was performed using one or more of the following dose reduction techniques: Automated exposure control, adjustment of the mA and/or kV according to patient size, and/or use of iterative reconstruction technique. FINDINGS: PULMONARY ARTERIES: Unremarkable. No pulmonary embolism. AORTA: No acute findings. No thoracic aortic aneurysm. LUNGS: Unremarkable. No nodule, mass or pulmonary consolidation. PLEURAL SPACES: Unremarkable. No effusion or pneuomothorax. HEART: Unremarkable. No cardiomegaly. No significant pericardial effusion. LYMPH NODES: No lymphadenopathy. BONES, CHEST WALL: Unremarkable. No fracture or destructive lesion OTHER FINDINGS: Suspect underlying cirrhosis correlate with liver function studies. . IMPRESSION: Suspect underlying cirrhosis correlate with liver function studies. No evidence of pulmonary embolus. .
--- NOTE | 2017-12-17 09:09 | RAD ---
HISTORY: Sepsis Patient COMPARISON: No prior. FINDINGS: LUNGS: No active pulmonary disease. PLEURA: No significant pleural effusion identified, no pneumothorax apparent. CARDIOVASCULAR: Normal. OSSEOUS STRUCTURES: Sternal wires VISUALIZED UPPER ABDOMEN: Normal. OTHER FINDINGS: None. IMPRESSION: No active disease.
[2017-12-17] MEDS: Sodium Chloride 0.9% 1,000 ML IV SCH ×2 (09:43→23:35)
[2017-12-17] MEDS ORDERED: Insulin Reg-MEDIUM-Coverage SC SCH (10:45)
[2017-12-17 11:09] LABS: IRON 29 ug/dL (45-180)
[2017-12-17 11:19] LABS: % IRON SATURATION 10 % (20-55); TOTAL IRON BINDING CAPACITY 301 ug/dL (261-462)
[2017-12-17 12:13] LABS: HEPATITIS B SURFACE AG Negative (NEGATIVE)
[2017-12-17 12:20] LABS: HEPATITIS A IGM NEGATIVE (NEGATIVE); HEPATITIS B CORE AB NEGATIVE (NEGATIVE)
[2017-12-17 12:31] LABS: HEPATITIS C ANTIBODY NEGATIVE (NEGATIVE)
--- NOTE | 2017-12-17 14:55 | US ---
HISTORY: elevated alk phos, transaminitis COMPARISON: None. TECHNIQUE: Sonographic evaluation of the abdomen. FINDINGS: LIVER: Measures 19.4 cm. Patent portal vein. Portal venous flow: Hepatopetal. Unremarkable echogenicity of the liver parenchyma. No mass. No intrahepatic bile duct dilatation. GALLBLADDER: Unremarkable. No gallstones. COMMON BILE DUCT: Measures 30.9 mm. No stones. No dilatation. PANCREAS: Obscured by overlying bowel gas. Non diagnostic assessment of the pancreas. RIGHT KIDNEY: Measures 5.8 x 7.3 x 13.2cm. Normal echogenicity. No calculus, mass, or hydronephrosis. LEFT KIDNEY: Measures 4.6 x 6.5 x 9.3cm. Normal echogenicity. No calculus, mass, or hydronephrosis. SPLEEN: Normal in size and contour. No mass. AORTA: No aneurysmal dilatation. IVC: Unremarkable. OTHER FINDINGS: None. IMPRESSION: Unremarkable abdominal sonogram.
[2017-12-17 16:03] LABS: FERRITIN 19.8 ng/mL
[2017-12-17 16:33] LABS: FOLATE 14.6 ng/mL
--- NOTE | 2017-12-17 16:38 | CARD ---
APPROVED REPORT EKG Measurement Heart [id number] <Conclusion> Sinus tachycardia Possible Inferior infarct, age undetermined Abnormal ECG
[2017-12-17] MEDS: POLYETHYLENE GLYCOL 3350 17 GM/Dose PACKET PO SCH (18:27)
[2017-12-17] MEDS: Insulin Lispro (humaLOG) MEDIUM Coverage SC SCH ×2 (18:27→21:58)
[2017-12-17] MEDS: guaiFENesin 100 mg/5 ml Syrup UD PO PRN (21:38)
--- NOTE | 2017-12-17 22:02 | HP ---
HISTORY OF PRESENT ILLNESS: The patient is 57-year-old who was brought in by daughter who is by the bedside, states he came back from [place] last week. He is being treated for ear infection. He took his course of antibiotics, does not know the name. Has been having fever since he came last Sunday. She has been giving ibuprofen here and there, but last night, she states when she gave him a hug on Father's Day, he was very hot. Although father was resistant to come to the hospital, she decided to bring him to the hospital for further evaluation because he was feeling weak, winded, short of breath on walking little distance. He was brought to the ER, was found to be anemic, 2 blood transfusions were given. Denies any chest pain, but does complain of shortness of breath, generalized weakness. PAST MEDICAL HISTORY: Significant for: 1. Dgg-oilktzl-bwrcekfku diabetes. 2. Hypertension. 3. Hyperlipidemia. 4. History of CABG 4 years ago. He had quadruple bypass. PAST SURGICAL HISTORY: Significant for open-heart surgery and shoulder surgery. Daughter also added that yesterday he coughed up some dark blood and he also noticed that he has dark stool. ALLERGIES: HE IS NOT ALLERGIC TO ANY MEDICATIONS. SOCIAL HISTORY: He is . His is back in [place]. Drinks alcohol socially and also smokes socially. MEDICATIONS AT HOME: He is on Plavix 75 mg daily, atorvastatin 40 mg daily. REVIEW OF SYSTEMS: Significant for generalized weakness. He states he feels a lot better now. PHYSICAL EXAMINATION: GENERAL: He is awake, alert, oriented, communicative. VITAL SIGNS: He is afebrile, pulse 72, respirations 16, blood pressure 126/75. LUNGS: Bilateral fair airflow. No rhonchi or crackles. HEART: S1 and S2 audible. ABDOMEN: Soft, nontender. No rebound. No guarding. NEUROLOGIC: He is awake, alert, oriented, able to communicate. LABORATORY DATA: WBC is 7.9, hemoglobin 10, hematocrit 30, and platelets of 147 after 2 blood transfusions. PT 15.4, INR 1.34. Chemistry: Sodium 142, potassium 3.8, chloride 109, CO2 of 23, BUN 15, creatinine 0.9, blood sugar of 131. His phosphorus is 1.9, iron is 29, TIBC is 301. AST 60, ALT 140. Urine analysis shows trace blood. ASSESSMENT: 1. Upper gastrointestinal bleed. 2. History of enj-thweclb-zbhcjqptn diabetes. 3. Anemia, symptomatic, status post blood transfusion. 4. Coronary artery disease, status post open-heart surgery. PLAN: Currently, the patient is on Protonix 40 mg every 12 hours. He is on IV fluid. I will cut down fluid to 100 mL per hour. Because of abnormal LFT, he underwent abdominal sonogram, needs to be followed. We will hold off his Plavix for now. Follow up blood culture. Follow up urine culture. There is no source of infection for now. His white count is better. We will hold off antibiotics for now. Plan for endoscopy in a.m. His phosphorus has been supplemented. Follow up CBC and CMP in a.m. Ivan Fung MD
[2017-12-18] MEDS: guaiFENesin 100 mg/5 ml Syrup UD PO PRN ×3 (05:14→19:04)
[2017-12-18 06:25] LABS: BASO # 0.04 K/mm3 (0.0-2.0); BASO % 0.4 % (0.0-3.0); EOS # 0.8 (0.0-0.7); EOS % 8.2 % (1.5-5.0); GRAN # 6.59 (1.4-6.5); GRAN % 68.9 % (50.0-68.0); HEMOGLOBIN 10.2 g/dL (14.0-18.0); LYMPH # 1.4 (1.2-3.4); LYMPH % 14.2 % (22.0-35.0); MEAN CELL VOLUME 84.7 fl (80.0-105.0); MEAN CORPUSCULAR HEMOGLOBIN 27.4 pg (25.0-35.0); MEAN CORPUSCULAR HGB CONC 32.4 g/dl (31.0-37.0); MEAN PLATELET VOLUME 9.6 fl (7.0-11.0); MONO # 0.8 (0.1-0.6); MONO % 8.3 % (1.0-6.0); RBC 3.72 10^6/uL (3.5-6.1); RED CELL DISTRIBUTION WIDTH 15.9 % (11.5-14.5); WHITE BLOOD COUNT 9.6 10^3/ul (4.5-11.0)
[2017-12-18] MEDS ORDERED: Metoprolol Succinate 25 mg XL Tab PO ONE (07:05)
[2017-12-18 07:22] LABS: ALB/GLOB RATIO 0.7 (1.1-1.8); ALBUMIN 3.1 g/dL (3.0-4.8); ALT/SGPT 47 U/L (7-56); AST/SGOT 47 U/L (17-59); BLOOD UREA NITROGEN 11 mg/dL (7-21); CALCIUM 7.5 mg/dL (8.4-10.5); GFR NON-AFRICAN AMERICAN > 60
[2017-12-18] MEDS: Insulin Lispro (humaLOG) MEDIUM Coverage SC SCH ×4 (07:49→23:00)
[2017-12-18 08:20] LABS: INR 1.22 (0.93-1.08); PARTIAL THROMBOPLASTIN TIME 26.6 Seconds (25.1-36.5); PROTHROMBIN TIME 14.1 SECONDS (9.4-12.5)
[2017-12-18] MEDS: POLYETHYLENE GLYCOL 3350 17 GM/Dose PACKET PO SCH ×2 (09:18→17:09)
[2017-12-18] MEDS: Sodium Chloride 0.9% 1,000 ML IV SCH ×2 (09:25→21:17)
[2017-12-18] MEDS ORDERED: Piperacillin/Tazobact 3.375 gm 100 ML IVPB STA (09:26)
[2017-12-18] MEDS ORDERED: Barium Sulfate Susp 2.1% w/v, 2.0% w/w 450 mL Bottle PO ONE (09:31)
--- NOTE | 2017-12-18 09:36 | CP.PCM.PN ---
<Petty Villanueva - Last Filed: 12/18/17 09:57> Subjective - Date & Time of Evaluation Date of Evaluation: 12/18/17 Time of Evaluation: 07:00 - Subjective Subjective: GI Progress Note for Nikko Anand PGY2 Patient seen and examined at bedside. Overnight patient had fever of Tmax of 100.7. Patient complains of dry cough, but denies chest pain, shortness of breath, nausea/vomiting/diarrhea, chills, numbness/tingling, dysuria or hematuria. Objective - Vital Signs/Intake and Output Vital Signs (last 24 hours): Temp Pulse Resp BP Pulse Ox 98.0 F 92 H 20 158/79 H 99 12/18/17 06:00 12/18/17 07:41 12/18/17 06:00 12/18/17 07:41 12/18/17 06:00 Intake and Output: 12/18/17 12/18/17 06:59 18:59 Intake Total 1800 Balance 1800 - Medications Medications: Current Medications Acetaminophen (Tylenol 325mg Tab) 650 mg PO Q6H PRN PRN Reason: Fever >100.4 F Last Admin: 12/17/17 23:50 Dose: 650 mg Atorvastatin Calcium (Lipitor) 40 mg PO DAILY MARYANNE Guaifenesin (Robitussin) 100 mg PO Q4H PRN PRN Reason: Cough Last Admin: 12/18/17 05:14 Dose: 100 mg Sodium Chloride (Sodium Chloride 0.9%) 1,000 mls @ 100 mls/hr IV .Q10H [facility] Last Admin: 12/18/17 09:25 Dose: 100 mls/hr Piperacillin Sod/Tazobactam Sod (Zosyn 3.375 In Ns 100ml) 100 mls @ 200 mls/hr IVPB STAT STA PRN Reason: Protocol Stop: 12/18/17 09:55 Insulin Human Lispro (Humalog Med) 0 units SC ACHS MARYANNE PRN Reason: Protocol Last Admin: 12/18/17 07:49 Dose: Not Given Pantoprazole Sodium (Protonix Inj) 40 mg IVP Q12 [facility] Last Admin: 12/18/17 09:21 Dose: 40 mg Polyethylene Glycol (Miralax) 17 gm PO BID [facility] Last Admin: 12/18/17 09:18 Dose: Not Given - Labs Labs: 12/18/17 05:45 12/18/17 05:45 PT 14.1 SECONDS (9.4-12.5) H 12/18/17 07:45 INR 1.22 (0.93-1.08) H 12/18/17 07:45 APTT 26.6 Seconds (25.1-36.5) 12/18/17 07:45 - Constitutional Appears: No Acute Distress - Head Exam Head Exam: ATRAUMATIC, NORMAL INSPECTION, NORMOCEPHALIC - Eye Exam Eye Exam: Normal appearance, PERRL Pupil Exam: NORMAL ACCOMODATION - ENT Exam ENT Exam: Mucous Membranes Moist - Respiratory Exam Respiratory Exam: Clear to Ausculation Bilateral, NORMAL BREATHING PATTERN. absent: Rales, Wheezes - Cardiovascular Exam Cardiovascular Exam: REGULAR RHYTHM, +S1, +S2. absent: Gallop, Rubs, Murmur - GI/Abdominal Exam GI & Abdominal Exam: Soft, Normal Bowel Sounds. absent: Rigid, Tenderness, Mass , Rebound - Extremities Exam Extremities Exam: Calf Tenderness, Normal Inspection. absent: Pedal Edema - Neurological Exam Neurological Exam: Alert, Awake, CN II-XII Intact, Normal Gait, Oriented x3 - Psychiatric Exam Psychiatric exam: Normal Affect, Normal Mood - Skin Skin Exam: Dry, Warm Assessment and Plan - Assessment and Plan (Free Text) Assessment: This is a 57yo [place] male with past medical history of IDDM, CAD, HTN, HLD who was admitted for 1. Sepsis with Bacteremia - Both blood cultures positive for G+ cocci - U/A mildly positive, urine culture positive for G+ cocci 2. Anemia (iron deficiency) - Can be secondary to GI bleed (pt using NSAID at home) - S/p 2U PRBC 3. Transaminitis (resolved) - this can be drug induced 4. Alk phos elevation w/ hepatomegaly - secondary to SPENCER v. autoimmune v. fatty liver 5. CAD on Plavix 6. HTN 7. IDDM Plan: Patient found to have positive blood culture. EGD cancelled today. Spoke with PMD and consulted Cardiology and Infectious disease. Will order CT A/P with PO contrast. Echo ordered. Patient given one dose of Zosyn. Abdominal U/S reviewed which did not show acute abnormalities. Hgb stable. Iron studies indicated iron deficiency anemia. Will continue to monitor. Hep panel negative. Patient had very large liver seen on CT of chest. Alk phos is still elevated. Will do autoimmune work up. Recommend patient to follow up as outpatient to also rule out SPENCER. Will place on clear liquid diet. Patient does take Metoprolol once per day at home. He is unsure of the dosage. I tried to call daughter, but she has not answered her phone. Will try to contact later this afternoon. Case seen, discussed and reviewed with Dr. Coe. Nikko Villanueva PGY2 <Josseline Coe V - Last Filed: 12/18/17 23:11> Objective - Vital Signs/Intake and Output Vital Signs (last 24 hours): Temp Pulse Resp BP Pulse Ox 99.5 F 95 H 20 175/87 H 99 12/18/17 18:00 12/18/17 19:01 12/18/17 18:00 12/18/17 19:01 12/18/17 06:00 Intake and Output: 12/18/17 12/19/17 18:59 06:59 Intake Total 1520 Balance 1520 - Medications Medications: Current Medications Acetaminophen (Tylenol 325mg Tab) 650 mg PO Q6H PRN PRN Reason: Fever >100.4 F Last Admin: 12/17/17 23:50 Dose: 650 mg Atorvastatin Calcium (Lipitor) 40 mg PO DAILY [facility] Last Admin: 12/18/17 13:02 Dose: 40 mg Clopidogrel Bisulfate (Plavix) 75 mg PO DAILY MARYANNE Last Admin: 12/18/17 15:50 Dose: 75 mg Guaifenesin (Robitussin) 100 mg PO Q4H PRN PRN Reason: Cough Last Admin: 12/18/17 19:04 Dose: 100 mg Sodium Chloride (Sodium Chloride 0.9%) 1,000 mls @ 100 mls/hr IV .Q10H [facility]ARYANNE Last Admin: 12/18/17 21:17 Dose: Not Given Vancomycin HCl (Vancomycin 1gm) 1 gm in 250 mls @ 167 mls/hr IVPB Q12H MARYANNE PRN Reason: Protocol Stop: 01/01/18 22:01 Last Admin: 12/18/17 21:11 Dose: 167 mls/hr Metronidazole (Flagyl) 250 mg in 50 mls @ 100 mls/hr IV Q8 MARYANNE PRN Reason: Protocol Stop: 12/23/17 22:01 Last Admin: 12/18/17 21:30 Dose: 100 mls/hr Ceftriaxone Sodium (Rocephin 1 Gram Ivpb) 1 gm in 100 mls @ 100 mls/hr IVPB DAILY MARYANNE PRN Reason: Protocol Insulin Human Lispro (Humalog Med) 0 units SC ACHS MARYANNE PRN Reason: Protocol Last Admin: 12/18/17 16:16 Dose: 5 unit Polyethylene Glycol (Miralax) 17 gm PO BID [facility] Last Admin: 12/18/17 17:09 Dose: Not Given - Labs Labs: 12/18/17 05:45 12/18/17 05:45 PT 14.1 SECONDS (9.4-12.5) H 12/18/17 07:45 INR 1.22 (0.93-1.08) H 12/18/17 07:45 APTT 26.6 Seconds (25.1-36.5) 12/18/17 07:45 Attending/Attestation - Attestation I have personally seen and examined this patient.: Yes I have fully participated in the care of the patient.: Yes I have reviewed all pertinent clinical information, including history, physical exam and plan: Yes Notes (Text): This is an addendum to GI progress report dictated by the Telesales Consultant.The patient was seen and examined earlier. Medical records, lab studies, imagings were reviewed. Last 24 hours events reviewed. Agreed with the above treatment plan as outlined in Telesales Consultant 's notes the with the addition of the following Endoscopy was canceled in view of positive blood culture Complains of mild discomfor in the abdomen and periumbilical On examination abdomen soft only mild tenderness present in the epigastric periumbilical area and mild tenderness in the right side The CT scan was reviewed Under filled right colon versus vs colitis patient has patchy recent streaking present recommend continue antibiotics as per ID We will notify ID regarding the CT finding Plavis has been restarted anemia and deficiency patteion Continue PPI Follow-up hemoglobin and hematocrit EGD once patient's condition is optimized 12/18/17 23:04
[2017-12-18] MEDS ORDERED: Vancomycin 2 GM in Sodium Chloride 0.9% 500 ML IVPB ONE (12:41)
--- NOTE | 2017-12-18 13:35 | CT ---
PROCEDURE: CT Abdomen and Pelvis without intravenous contrast HISTORY: bacteremia COMPARISON: None. TECHNIQUE: Without contrast.. Contrast dose: Radiation dose: Total exam DLP = 694 mGy-cm. This CT exam was performed using one or more of the following dose reduction techniques: Automated exposure control, adjustment of the mA and/or kV according to patient size, and/or use of iterative reconstruction technique. FINDINGS: LOWER THORAX: Unremarkable. LIVER: Unremarkable. No gross lesion or ductal dilatation. GALLBLADDER AND BILE DUCTS: Unremarkable. PANCREAS: Unremarkable. No gross lesion or ductal dilatation. SPLEEN: Unremarkable. ADRENALS: Unremarkable. No mass. KIDNEYS AND URETERS: There is a left pelvic kidney. The right kidney is in normal position VASCULATURE: Unremarkable. No aortic aneurysm. BOWEL: There is severe mural thickening in the ascending colon consistent with colitis. There is a small amount of ascites and mesenteric inflammation. APPENDIX: Unremarkable. Normal appendix. PERITONEUM: Unremarkable. No free fluid. No free air. LYMPH NODES: Unremarkable. No enlarged lymph nodes. BLADDER: Unremarkable. REPRODUCTIVE: Unremarkable. BONES: No acute fracture. OTHER FINDINGS: None. IMPRESSION: Severe colitis in the ascending colon. There is mild ascites and mesenteric inflammation
--- NOTE | 2017-12-18 15:01 | CON ---
DATE: The patient is seen earlier today in room 269 bed 2. CHIEF COMPLAINT: Fever and positive blood cultures x1 day. HISTORY OF PRESENT ILLNESS: This is a 57-year-old male with a history of diabetes mellitus, coronary artery disease, myocardial infarction, hypertension and hyperlipidemia who is admitted through the Emergency Room. In the Emergency Room, the patient stated that he was feeling having fevers and weakness and having shortness of breath, generalized aches and pains for last two days and was being treated for an ear infection in [place] by his primary doctor there and he did have some cough and coughed up some blood and no episode of hemoptysis. No hematemesis and no abdominal pain, diarrhea or constipation. He does admit to having melena and does have a history of anemia. REVIEW OF SYSTEMS: The 12-point review of systems is performed. PAST MEDICAL HISTORY: Significant for diabetes mellitus, hypertension, hyperlipidemia, otitis media, coronary artery disease, myocardial infarction. PAST SURGICAL HISTORY: Significant for coronary artery bypass graft 3 years ago and a right shoulder surgery. ALLERGIES: THE PATIENT HAS NO KNOWN ALLERGIES. MEDICATIONS AT HOME: Include the patient to be on Lipitor and Plavix. His diabetes is diet controlled. PHYSICAL EXAMINATION: VITAL SIGNS: The patient is in bed. Temperature is 98, T-max is 102.8 with blood pressure of 158/70 and heart rate of 92, was up to 120 with respiratory rate of 20, it was up to 22. The patient is saturating in room air at 99%. HEENT: Examination is unremarkable. NECK: Supple. LUNGS: Have decreased breath sounds. HEART: Normal S1, S2. ABDOMEN: Soft, nontender. No organomegaly. No rebound or guarding. No masses. DATA: Laboratory examination reveals a white count of 12,500, hemoglobin of 8, platelets of 184 with 78% granulocytosis and coagulation is noted. BUN of 11, creatinine of 0.9, alkaline phosphatase is 154. Urinalysis is noted and hepatitis profile is negative. Blood cultures, two bottles are positive for what is reported to be a Gram-positive cocci and Staph aureus by PNA FISH and urine cultures also positive for Gram-positive cocci. The patient had a CT scan of the abdomen and pelvis, of which the results are pending. Chest x-ray is reported to be negative. ASSESSMENT AND PLAN: This is a 57-year-old male with diabetes mellitus, hypertension, coronary artery disease, myocardial infarction, otitis media, hypertension, hyperlipidemia, anemia, history of coronary bypass graft 3 years ago now presenting with fever, tachycardia, leukocytosis, dyspnea, positive blood cultures. Sepsis with Staph aureus bacteremia, source of it is unclear in a patient who is diabetic with no obvious clear breakdown in the skin anywhere, must rule out underlying endocarditis. We will repeat blood cultures x2 and order an echocardiogram to rule out vegetation and HIV test, sedimentation rate and C-reactive protein. Waiting for further identification of Gram-positive cocci in the echo results, rule out endocarditis and we will treat the patient with vancomycin 2 g IV now and then, 1 g IV every 12 hours pending initial culture results and workup results. We will follow closely with you. Nitesh Ng MD
[2017-12-18] MEDS: Vancomycin 1gm in NS 250ml 1 GM/250 ML BAG IVPB SCH (21:11)
[2017-12-18] MEDS: metroNIDAZOLE IV 250mg/50 ml 250 MG/50 ML BAG IV SCH (21:30)
--- NOTE | 2017-12-18 22:05 | CON ---
DATE: 12/18/2017 CARDIOLOGY CONSULTATION HISTORY OF PRESENT ILLNESS: The patient is a 57-year-old male who presents with a headache as well as "infection." The patient's cardiac history includes a history of coronary artery bypass surgery done in [place] and has been visiting here. There is no followup according to the patient. His plans are to go back to [place]. He denies angina, denies shortness of breath. Does admit to fatigue. He can walk approximately 2 blocks and stops because of fatigue. His cardiac risk factors include hypertension. No diabetes mellitus. No previous smoking. No angina noted. REVIEW OF SYSTEMS: A 14-point review of systems is reviewed in detail. Other than fatigue, no cardiac symptomatology is noted. PHYSICAL EXAMINATION: VITAL SIGNS: Blood pressure is 158/79, heart rates in the 80s. NECK: Negative JVD. LUNGS: Without rales. HEART: Reveals S1 and S2. EXTREMITIES: Without edema. EKG reveals sinus tachycardia with nonspecific ST-T changes. LABORATORY DATA: Troponin is negative x1. Glucose is 202. IMPRESSION: 1. Bacteremia. 2. Urosepsis. 3. Stable angina. 4. Coronary artery disease. 5. History of coronary artery bypass graft. 6. Diabetes mellitus. 7. Hypertension. PLAN: Given these findings, we will put the patient back on his Plavix, which he has been using as an antiplatelet therapy. We will place him back on his Lipitor as well. No further cardiac workup is necessary. We will review the echocardiogram. The patient plans to return back to [place]. Uri Baker MD
--- NOTE | 2017-12-18 23:15 | PN ---
DATE: 12/18/2017 SUBJECTIVE: The patient is 57-year-old, seen and examined. Denies any chest pain. No shortness of breath. Eating and tolerating. PHYSICAL EXAMINATION: VITAL SIGNS: He has temperature of 99.5, however, overnight. He has temperature of 100.7, in the middle of the night, pulse 94, respirations 20, blood pressure 175/87. LUNGS: Bilateral fair airflow. No rhonchi or crackle. HEART: S1, S2 audible. ABDOMEN: Soft, nontender. No rebound. No guarding. Obese with hepatomegaly. EXTREMITIES: Bilateral legs, no edema. LABORATORY EXAM: WBC is 9.6, hemoglobin 10.2, hematocrit 31.5, platelet of 171. Chemistry: Sodium 140, potassium 3.9, chloride 103, CO2 of 28, BUN 11, creatinine 0.9. Blood sugar of 262. C-reactive protein is 177. Alk phos is 154. His urine positive for Gram-positive cocci. Blood is also positive for Gram-positive cocci. DIAGNOSTIC DATA: CT scan of the abdomen and pelvis was done that shows severe colitis in the ascending colon. There is mild ascites and mesenteric inflammation. Abdominal ultrasound was unremarkable. CT scan of the chest shows underlying cirrhosis, correlate with liver function studies. ASSESSMENT: 1. Ascending colitis. 2. Gram-positive coccemia. 3. Coronary artery disease, status post angioplasty. 4. Hyperlipidemia. PLAN: We will keep patient on IV fluid. Start on Flagyl and Rocephin. Order for echocardiogram. Follow up electrolyte in a.m. Cardiology evaluation and ID evaluation has been requested. We will follow up patient in a.m. Ivan Fung MD
[2017-12-19] MEDS: Sodium Chloride 0.9% 1,000 ML IV SCH ×2 (05:25→20:42)
[2017-12-19] MEDS: metroNIDAZOLE IV 250mg/50 ml 250 MG/50 ML BAG IV SCH ×3 (05:26→22:07)
[2017-12-19 05:48] LABS: BASO # 0.05 K/mm3 (0.0-2.0); BASO % 0.6 % (0.0-3.0); EOS # 0.7 (0.0-0.7); EOS % 8.1 % (1.5-5.0); GRAN # 5.07 (1.4-6.5); GRAN % 63.1 % (50.0-68.0); HEMOGLOBIN 10.3 g/dL (14.0-18.0); LYMPH # 1.5 (1.2-3.4); LYMPH % 18.7 % (22.0-35.0); MEAN CELL VOLUME 84.4 fl (80.0-105.0); MEAN CORPUSCULAR HEMOGLOBIN 27.7 pg (25.0-35.0); MEAN CORPUSCULAR HGB CONC 32.8 g/dl (31.0-37.0); MONO # 0.8 (0.1-0.6); MONO % 9.5 % (1.0-6.0); RBC 3.72 10^6/uL (3.5-6.1); RED CELL DISTRIBUTION WIDTH 15.8 % (11.5-14.5)
[2017-12-19 06:29] LABS: ALB/GLOB RATIO 0.7 (1.1-1.8); ALT/SGPT 53 U/L (7-56); AST/SGOT 56 U/L (17-59); BLOOD UREA NITROGEN 9 mg/dL (7-21); CALCIUM 7.6 mg/dL (8.4-10.5); GFR NON-AFRICAN AMERICAN > 60
[2017-12-19] MEDS: Insulin Lispro (humaLOG) MEDIUM Coverage SC SCH ×4 (08:26→22:09)
--- NOTE | 2017-12-19 09:19 | CARD ---
APPROVED REPORT EXAM: Two-dimensional and M-mode echocardiogram with Doppler and color Doppler. INDICATION 2D DIMENSIONS IVSd0.9 (0.7-1.1cm)LVDd4.8 (3.9-5.9cm) PWd1.0 (0.7-1.1cm)LVDs3.4 (2.5-4.0cm) FS (%) 28.8 %LVEF (%)55.5 (>50%) M-Mode DIMENSIONS Left Atrium (MM)3.80 (2.5-4.0cm)Aortic Root3.50 (2.2-3.7cm) Aortic Cusp Exc.1.70 (1.5-2.0cm) Aortic Valve AoV Peak Rmjmdwdy410.0cm/Macario Peak GR.11mmHg Mitral Valve MV E Allmhdag695.0cm/sMV A Uhntjvyk90.6cm/sE/A ratio1.3 TDI Lateral E' Peak V10.50cm/sMedial E' Peak V7.99cm/sE/Lateral E'11.6 E/Medial E'15.3 Tricuspid Valve TR Peak Zlngiixe357pr/sRAP [id number] Peak Gr.34mmHg [id number] LEFT VENTRICLE The left ventricle is normal size. There is normal left ventricular wall thickness. The left ventricular function is normal.EF-55% There is normal LV segmental wall motion. Transmitral Doppler flow pattern is Grade II-pseudonormal filling dynamics. No left ventricle thrombus noted on this study. There is no ventricular septal defect visualized. There is no left ventricular aneurysm. There is no mass noted in the left ventricle. RIGHT VENTRICLE The right ventricle is normal size. There is normal right ventricular wall thickness. The right ventricular systolic function is normal. ATRIA The left atrium size is normal. The right atrium size is normal. The interatrial septum is intact with no evidence for an atrial septal defect. AORTIC VALVE The aortic valve is probably bicuspid. The aortic valve is thickened but opens well. No aortic regurgitation is present. There is no aortic valvular stenosis. There is no aortic valvular vegetation. MITRAL VALVE The mitral valve is thickened but opens well. Mitral regurgitation is trace to mild. There is no mitral valve stenosis. There is no evidence of mitral valve prolapse. TRICUSPID VALVE The tricuspid valve leaflets are thickened , but open well. There is mild tricuspid regurgitation.[id number]_44 mmof hg. There is no tricuspid valve stenosis. There is no tricuspid valve prolapse or vegetation. PULMONIC VALVE The pulmonic valve is mildly thickened. There is trace to mild pulmonic valvular regurgitation. There is no pulmonic valvular stenosis. GREAT VESSELS The aortic root is normal in size. The ascending aorta is normal in size. The pulmonary artery is normal. The IVC is normal in size and collapses >50% with inspiration. PERICARDIAL EFFUSION There is no pleural effusion. There is no pericardial effusion. <Conclusion> Normal chamber Size. EF-55% The aortic valve is probably bicuspid. The aortic valve is thickened but opens well. Mitral regurgitation is trace to mild. There is mild tricuspid regurgitation.RVSP_44 mmof hg. The IVC is normal in size and collapses >50% with inspiration. There is no pericardial effusion. No vegetation or thrombus noted.
[2017-12-19] MEDS: cefTRIAXone 1 gm 1 GM/100 ML BAG IVPB SCH (09:59)
[2017-12-19] MEDS: POLYETHYLENE GLYCOL 3350 17 GM/Dose PACKET PO SCH ×2 (10:00→17:48)
--- NOTE | 2017-12-19 10:50 | CP.PCM.PN ---
<Petty Villanueva - Last Filed: 12/19/17 16:14> Subjective - Date & Time of Evaluation Date of Evaluation: 12/19/17 Time of Evaluation: 07:00 - Subjective Subjective: GI Progress Note for Nikko Anand PGY2 Patient seen and examined at bedside. There no acute events overnight as per nursing staff. Patient reports feeling well. He had temp of 100.0 this am, but denies subjective fevers/chills, chest pain, shortness of breath, nausea/ vomiting/diarrhea/constipation, abdominal pain, dysuria/hematuria, numbness or tingling. I spoke with patient and his daughter. The patient is not planning on going back to [place] at this time. He will stay with his daughter. He used to live in the [place] for 10[place] and recently went back to [place]. Objective - Vital Signs/Intake and Output Vital Signs (last 24 hours): Temp Pulse Resp BP Pulse Ox 98.2 F 79 19 145/75 98 12/19/17 05:55 12/19/17 05:55 12/19/17 05:55 12/19/17 05:55 12/19/17 05:55 Intake and Output: 12/19/17 12/19/17 06:59 18:59 Intake Total 1500 Balance 1500 - Medications Medications: Current Medications Acetaminophen (Tylenol 325mg Tab) 650 mg PO Q6H PRN PRN Reason: Fever >100.4 F Last Admin: 12/18/17 23:13 Dose: 650 mg Atorvastatin Calcium (Lipitor) 40 mg PO DAILY [facility] Last Admin: 12/19/17 09:59 Dose: 40 mg Clopidogrel Bisulfate (Plavix) 75 mg PO DAILY [facility] Last Admin: 12/19/17 09:59 Dose: 75 mg Guaifenesin (Robitussin) 100 mg PO Q4H PRN PRN Reason: Cough Last Admin: 12/18/17 19:04 Dose: 100 mg Sodium Chloride (Sodium Chloride 0.9%) 1,000 mls @ 100 mls/hr IV .Q10H [facility] Last Admin: 12/19/17 05:25 Dose: 100 mls/hr Vancomycin HCl (Vancomycin 1gm) 1 gm in 250 mls @ 167 mls/hr IVPB Q12H [facility]ARYANNE PRN Reason: Protocol Stop: 01/01/18 22:01 Last Admin: 12/18/17 21:11 Dose: 167 mls/hr Metronidazole (Flagyl) 250 mg in 50 mls @ 100 mls/hr IV Q8 MARYANNE PRN Reason: Protocol Stop: 12/23/17 22:01 Last Admin: 12/19/17 05:26 Dose: 100 mls/hr Ceftriaxone Sodium (Rocephin 1 Gram Ivpb) 1 gm in 100 mls @ 100 mls/hr IVPB DAILY [facility]ANNE PRN Reason: Protocol Stop: 12/23/17 10:59 Last Admin: 12/19/17 09:59 Dose: 100 mls/hr Insulin Human Lispro (Humalog Med) 0 units SC ACHS MARYANNE PRN Reason: Protocol Last Admin: 12/19/17 08:26 Dose: 3 unit Polyethylene Glycol (Miralax) 17 gm PO BID [facility] Last Admin: 12/19/17 10:00 Dose: 17 gm - Labs Labs: 12/19/17 05:30 12/19/17 05:30 PT 14.1 SECONDS (9.4-12.5) H 12/18/17 07:45 INR 1.22 (0.93-1.08) H 12/18/17 07:45 APTT 26.6 Seconds (25.1-36.5) 12/18/17 07:45 - Constitutional Appears: No Acute Distress - Head Exam Head Exam: ATRAUMATIC, NORMAL INSPECTION, NORMOCEPHALIC - Eye Exam Eye Exam: Normal appearance, PERRL Pupil Exam: NORMAL ACCOMODATION, PERRL - ENT Exam ENT Exam: Mucous Membranes Moist - Neck Exam Neck Exam: Full ROM - Respiratory Exam Respiratory Exam: Clear to Ausculation Bilateral, NORMAL BREATHING PATTERN. absent: Rales, Rhonchi, Wheezes - Cardiovascular Exam Cardiovascular Exam: REGULAR RHYTHM, +S1, +S2. absent: Gallop, Rubs, Murmur - GI/Abdominal Exam GI & Abdominal Exam: Soft, Normal Bowel Sounds. absent: Rigid, Tenderness, Mass , Rebound - Extremities Exam Extremities Exam: Normal Inspection. absent: Calf Tenderness, Pedal Edema - Neurological Exam Neurological Exam: Alert, Awake, CN II-XII Intact, Normal Gait, Oriented x3 - Psychiatric Exam Psychiatric exam: Normal Affect, Normal Mood - Skin Skin Exam: Dry, Warm Assessment and Plan - Assessment and Plan (Free Text) Assessment: This is a 57yo [place] male with past medical history of IDDM, CAD, HTN, HLD who was admitted for 1. Sepsis with Bacteremia - Both blood cultures positive for G+ cocci - U/A mildly positive, urine culture positive for G+ cocci 2. Anemia (iron deficiency) - Can be secondary to GI bleed (pt using NSAID at home) - S/p 2U PRBC 3. Transaminitis (resolved) - this can be drug induced 4. Alk phos elevation w/ hepatomegaly - secondary to SPENCER v. autoimmune v. fatty liver 5. CAD on Plavix 6. HTN 7. IDDM Plan: CT A/P reviewed which showed possible colitis. Patient denies having any symptoms. Plavix restarted as per cardiology. Echo reviewed and showed bicuspid aortic valve, EF: 55%, RSVP 44 and no vegetations seen. ID is on consult. Patient is on Rocephin, Flagyl and Vancomycin. Consider Venofer for iron deficiency anemia. Hgb is stable. Will continue to monitor. Continue PPI. We will do EGD once patient's condition is optimized. Will discuss with ID. Patient has staph aureus in urine which can be suspicious for endocarditis. Will start patient on home dose of Metoprolol for his history of hypertension. HgbA1c noted to be 10.1. As per nurse informatics educator, patient was injecting insulin in his arms and not his stomach at home. Autoimmune work up pending for transaminitis. Will discuss with PMD. Case seen, discussed and reviewed with Dr. Coe. Nikko Villanueva PGY2 <Josseline Coe V - Last Filed: 02/03/18 17:07> Objective - Vital Signs/Intake and Output Vital Signs (last 24 hours): Temp Pulse Resp BP Pulse Ox 98.6 F 98 H 18 161/87 H 98 12/19/17 22:00 12/19/17 22:00 12/19/17 22:00 12/19/17 22:00 12/19/17 22:00 Intake and Output: 12/19/17 12/20/17 18:59 06:59 Intake Total 720 Balance 720 - Medications Medications: Current Medications Acetaminophen (Tylenol 325mg Tab) 650 mg PO Q6H PRN PRN Reason: Fever >100.4 F Last Admin: 12/19/17 20:41 Dose: 650 mg Atorvastatin Calcium (Lipitor) 40 mg PO DAILY [facility] Last Admin: 12/19/17 09:59 Dose: 40 mg Clopidogrel Bisulfate (Plavix) 75 mg PO DAILY [facility] Last Admin: 12/19/17 09:59 Dose: 75 mg Guaifenesin (Robitussin) 100 mg PO Q4H PRN PRN Reason: Cough Last Admin: 12/18/17 19:04 Dose: 100 mg Sodium Chloride (Sodium Chloride 0.9%) 1,000 mls @ 100 mls/hr IV .Q10H [facility] Last Admin: 12/19/17 20:42 Dose: 100 mls/hr Vancomycin HCl (Vancomycin 1gm) 1 gm in 250 mls @ 167 mls/hr IVPB Q12H [facility] PRN Reason: Protocol Stop: 01/01/18 22:01 Last Admin: 12/19/17 22:14 Dose: 167 mls/hr Metronidazole (Flagyl) 250 mg in 50 mls @ 100 mls/hr IV Q8 [facility] PRN Reason: Protocol Stop: 12/23/17 22:01 Last Admin: 12/19/17 22:07 Dose: 100 mls/hr Ceftriaxone Sodium (Rocephin 1 Gram Ivpb) 1 gm in 100 mls @ 100 mls/hr IVPB DAILY [facility] PRN Reason: Protocol Stop: 12/23/17 10:59 Last Admin: 12/19/17 09:59 Dose: 100 mls/hr Insulin Human Lispro (Humalog Med) 0 units SC ACHS [facility] PRN Reason: Protocol Last Admin: 12/19/17 22:09 Dose: Not Given Lisinopril (Zestril) 5 mg PO DAILY [facility] Last Admin: 12/19/17 14:45 Dose: 5 mg Metoprolol Succinate (Toprol Xl) 25 mg PO BRK [facility] Polyethylene Glycol (Miralax) 17 gm PO BID [facility] Last Admin: 12/19/17 17:48 Dose: Not Given - Labs Labs: 12/19/17 05:30 12/19/17 05:30 PT 14.1 SECONDS (9.4-12.5) H 12/18/17 07:45 INR 1.22 (0.93-1.08) H 12/18/17 07:45 APTT 26.6 Seconds (25.1-36.5) 12/18/17 07:45 Attending/Attestation - Attestation I have personally seen and examined this patient.: Yes I have fully participated in the care of the patient.: Yes I have reviewed all pertinent clinical information, including history, physical exam and plan: Yes Notes (Text): This is an addendum to GI progress report dictated by the Radio Communications Superintendent.The patient was seen and examined earlier. Medical records, lab studies, imagings were reviewed. Last 24 hours events reviewed. Agreed with the above treatment plan as outlined in Radio Communications Superintendent 's notes the with the addition of the following This patient with CAD admitted with sepsis and has bacteremia. Culture positive for gram positive bacteria. CT scan was reviewed and showed possible colitis. Continue the antibiotics. Patient has iron deficiency anemia. Would need elective EGD colonoscopy. Emphiric PPI therapy. Also has large hepatomegaly. 12/19/17 23:57 02/03/18 16:54
[2017-12-19] MEDS ORDERED: Metoprolol Succinate 25 mg XL Tab PO STA (11:00)
[2017-12-19] MEDS: Vancomycin 1gm in NS 250ml 1 GM/250 ML BAG IVPB SCH ×2 (11:17→22:14)
--- NOTE | 2017-12-19 14:39 | PN ---
DATE: 12/19/2017 CARDIOLOGY FOLLOWUP SUBJECTIVE: The patient is asymptomatic. No chest pain noted. PHYSICAL EXAMINATION: VITAL SIGNS: Blood pressure is 170/91, the heart rate is in the 80s. NECK: Negative JVD. LUNGS: Without rales. HEART: Reveals S1, S2. EXTREMITIES: Without edema. LABORATORY DATA: Hemoglobin is 10.3. Chemistries: BUN and creatinine unremarkable. Glucose is 222. Echocardiogram shows normal LV function with mild pulmonary hypertension noted. IMPRESSION: 1. Sepsis. 2. Stable angina. 3. History of coronary artery bypass surgery. 4. Diabetes mellitus. 5. Mild pulmonary hypertension. 6. Systemic hypertension. PLAN: Given these findings, we will add CINDI inhibitor for better blood pressure control. We will start lisinopril today. Uri Baker MD
--- NOTE | 2017-12-19 15:02 | PN ---
DATE: 12/19/2017 SUBJECTIVE: The patient is in bed in no acute distress, nontoxic. OBJECTIVE: VITAL SIGNS: On exam, temperature is 98, blood pressure is 170/90, respiratory rate is 21, heart rate of 95. HEENT: Examination is unremarkable. NECK: Supple. LUNGS: Have decreased breath sounds. HEART: Normal S1, S2. ABDOMEN: Soft. DATA: Laboratory examination reveals the white count is down to 8, sedimentation rate is 95, hemoglobin of 10. BUN of 9, creatinine of 0.8. Urinalysis is noted and Immunology is reviewed and hepatitis profile is negative. Microbiology reveals the repeat blood cultures are negative and initial culture, Staph aureus. Urine has sensitive staph aureus. The blood cultures, staph aureus is identification sensitivity is not available at this time. Review of orders reveals the patient to be on vancomycin. Dr. Fung's note from yesterday is noted and echocardiogram read by Dr. Param Macias. The aortic valve is thickened, but opens well. No vegetations of thrombus is noted. Of interest is that the patient's sedimentation rate is elevated, C-reactive protein is also elevated at 177. ASSESSMENT AND PLAN: This is a 57-year-old male with sepsis with Staph aureus bacteremia, source is unclear and the patient is diabetic, must rule out underlying endocarditis. The patient does have colitis, probably from the Staph bacteremia and toxin production. Awaiting for the sensitivity of Staph aureus in the blood. Repeat blood cultures, no growth. Currently on vancomycin. Rocephin and Flagyl was added by Dr. Fung and we will make adjustments and recommendations. It is concerning the patient's sedimentation rate and C-reactive protein is elevated. We will follow closely with you.. Nitesh Ng MD
--- NOTE | 2017-12-19 20:15 | PN ---
DATE: 12/19/2017 SUBJECTIVE: The patient is 57-year-old, seen and examined, sitting in chair, seems to be comfortable. No nausea, no vomiting, no diarrhea. Eating and tolerating well. No fever. No chills. No headache. No ear pain. PHYSICAL EXAMINATION VITAL SIGNS: He is afebrile, pulse 90, respiration 21, blood pressure 167/86. LUNGS: Bilateral fair airflow. No rhonchi or crackle. HEART: S1 and S2 audible. ABDOMEN: Soft, obese, nontender. No rebound. No guarding. NEUROLOGICAL: Patient is awake and alert. Able to communicate. Ambulatory. LABORATORY EXAMINATION: WBC is 8, hemoglobin 10, hematocrit 31.4, platelet of 160. Chemistries: Sodium 140, potassium 4, chloride 105, CO2 27, BUN 9, creatinine 0.8. Blood sugar is 222. His C-reactive protein is 177. His hepatitis profile is negative. His urine culture is positive for Staphylococcus aureus. Blood culture positive for Gram-positive cocci. Repeat blood cultures are negative. Echocardiogram done is unremarkable. No evidence of endocarditis. ASSESSMENT: 1. Ascending colon, severe colitis. 2. Hypertension. 3. Hyperlipidemia. 4. Coronary artery disease, status post open heart surgery. 5. Ascending colitis. 6. Bacteremia. 7. Open heart surgery. PLAN: Continue current antibiotics. Spoke to Dr. Coe. He wants to wait until infection clears up before he goes for endoscopy, colonoscopy. Follow up this patient in a.m. Ivan Fung MD
[2017-12-20] MEDS: metroNIDAZOLE IV 250mg/50 ml 250 MG/50 ML BAG IV SCH ×2 (05:18→15:16)
[2017-12-20] MEDS: Insulin Lispro (humaLOG) MEDIUM Coverage SC SCH ×4 (07:51→23:29)
[2017-12-20] MEDS: Metoprolol Succinate 25 mg XL Tab PO SCH (07:51)
--- NOTE | 2017-12-20 08:27 | CP.PCM.PN ---
<Petty Villanueva - Last Filed: 12/20/17 11:15> Subjective - Date & Time of Evaluation Date of Evaluation: 12/20/17 Time of Evaluation: 07:00 - Subjective Subjective: GI Progress for Nikko Anand PGY2 Patient seen and examined at bedside. There were no acute overnight events as per nursing staff. Patient reports having some LLQ abdominal pain and constipation. He denies chest pain, shortness of breath, nausea/vomiting/ diarrhea, fever/chills, dysuria or hematuria. Patient does have small wound on L ankle that is dry with some flaking that has been there for years. Objective - Vital Signs/Intake and Output Vital Signs (last 24 hours): Temp Pulse Resp BP Pulse Ox 98.7 F 85 20 164/87 H 98 12/20/17 06:00 12/20/17 07:51 12/20/17 06:00 12/20/17 07:51 12/20/17 06:00 Intake and Output: 12/20/17 12/20/17 06:59 18:59 Intake Total 2160 Balance 2160 - Medications Medications: Current Medications Acetaminophen (Tylenol 325mg Tab) 650 mg PO Q6H PRN PRN Reason: Fever >100.4 F Last Admin: 12/19/17 20:41 Dose: 650 mg Atorvastatin Calcium (Lipitor) 40 mg PO DAILY [facility] Last Admin: 12/19/17 09:59 Dose: 40 mg Clopidogrel Bisulfate (Plavix) 75 mg PO DAILY [facility] Last Admin: 12/19/17 09:59 Dose: 75 mg Guaifenesin (Robitussin) 100 mg PO Q4H PRN PRN Reason: Cough Last Admin: 12/18/17 19:04 Dose: 100 mg Sodium Chloride (Sodium Chloride 0.9%) 1,000 mls @ 100 mls/hr IV .Q10H MARYANNE Last Admin: 12/19/17 20:42 Dose: 100 mls/hr Vancomycin HCl (Vancomycin 1gm) 1 gm in 250 mls @ 167 mls/hr IVPB Q12H MARYANNE PRN Reason: Protocol Stop: 01/01/18 22:01 Last Admin: 12/19/17 22:14 Dose: 167 mls/hr Metronidazole (Flagyl) 250 mg in 50 mls @ 100 mls/hr IV Q8 MARYANNE PRN Reason: Protocol Stop: 12/23/17 22:01 Last Admin: 12/20/17 05:18 Dose: 100 mls/hr Ceftriaxone Sodium (Rocephin 1 Gram Ivpb) 1 gm in 100 mls @ 100 mls/hr IVPB DAILY [facility] PRN Reason: Protocol Stop: 12/23/17 10:59 Last Admin: 12/19/17 09:59 Dose: 100 mls/hr Insulin Human Lispro (Humalog Med) 0 units SC ACHS [facility] PRN Reason: Protocol Last Admin: 12/20/17 07:51 Dose: 3 unit Lisinopril (Zestril) 5 mg PO DAILY [facility] Last Admin: 12/19/17 14:45 Dose: 5 mg Metoprolol Succinate (Toprol Xl) 25 mg PO BRK [facility] Last Admin: 12/20/17 07:51 Dose: 25 mg Polyethylene Glycol (Miralax) 17 gm PO BID [facility] Last Admin: 12/19/17 17:48 Dose: Not Given - Labs Labs: 12/19/17 05:30 12/19/17 05:30 PT 14.1 SECONDS (9.4-12.5) H 12/18/17 07:45 INR 1.22 (0.93-1.08) H 12/18/17 07:45 APTT 26.6 Seconds (25.1-36.5) 12/18/17 07:45 - Constitutional Appears: No Acute Distress - Head Exam Head Exam: ATRAUMATIC, NORMAL INSPECTION, NORMOCEPHALIC - Eye Exam Eye Exam: Normal appearance, PERRL Pupil Exam: NORMAL ACCOMODATION, PERRL - ENT Exam ENT Exam: Mucous Membranes Moist - Respiratory Exam Respiratory Exam: Clear to Ausculation Bilateral, NORMAL BREATHING PATTERN. absent: Rales, Rhonchi, Wheezes - Cardiovascular Exam Cardiovascular Exam: REGULAR RHYTHM, +S1, +S2. absent: Gallop, Rubs, Murmur - GI/Abdominal Exam GI & Abdominal Exam: Soft, Tenderness (LLQ), Normal Bowel Sounds. absent: Rigid , Mass, Rebound - Extremities Exam Additional comments: L ankle wound, dry no bleeding, no pus - Neurological Exam Neurological Exam: Alert, Awake, CN II-XII Intact, Oriented x3 - Psychiatric Exam Psychiatric exam: Normal Affect, Normal Mood - Skin Skin Exam: Dry, Warm Assessment and Plan - Assessment and Plan (Free Text) Assessment: This is a 57yo Citizen Of [place] male with past medical history of IDDM, CAD, HTN, HLD who was admitted for 1. Sepsis with Bacteremia - Both blood cultures positive for S. aureus. - Repeat blood cultures positive for G+ cocci - U/A mildly positive, urine culture positive for S. aureus 2. Anemia (iron deficiency) - Can be secondary to GI bleed (pt using NSAID at home) - S/p 2U PRBC 3. Transaminitis (resolved) - this can be drug induced 4. Alk phos elevation w/ hepatomegaly - secondary to SPENCER v. autoimmune v. fatty liver 5. CAD on Plavix 6. HTN Plan: Repeat blood cultures were positive again for G + cocci. S. aureus in urine. Endocarditis is considered as part of the differential diagnosis. Echo did not show vegetations, but did show bicuspid aortic valve. ID is on consult. HIV is negative. Autoimmune work up is pending. Continue PPI. Diet as tolerated. Cardiology on consult. Will do EGD once patient is medically optimized for iron deficiency anemia. Patient is on Plavix. Consider Venofer for iron deficiency. Will place patient on stool softener for constipation. Will discuss with PMD. Case seen, discussed and reviewed with Dr. Coe. Nikko Villanueva PGY2 <Josseline Coe V - Last Filed: 02/03/18 17:00> Objective - Vital Signs/Intake and Output Vital Signs (last 24 hours): Temp Pulse Resp BP Pulse Ox 98.8 F 87 20 165/88 H 98 12/20/17 22:14 12/20/17 22:14 12/20/17 22:14 12/20/17 22:14 12/20/17 22:14 Intake and Output: 12/20/17 12/21/17 18:59 06:59 Intake Total 720 600 Balance 720 600 - Medications Medications: Current Medications Acetaminophen (Tylenol 325mg Tab) 650 mg PO Q6H PRN PRN Reason: Fever >100.4 F Last Admin: 12/19/17 20:41 Dose: 650 mg Atorvastatin Calcium (Lipitor) 40 mg PO DAILY [facility] Last Admin: 12/20/17 11:20 Dose: 40 mg Clopidogrel Bisulfate (Plavix) 75 mg PO DAILY [facility] Last Admin: 12/20/17 11:21 Dose: 75 mg Docusate Sodium (Colace) 100 mg PO BID [facility] Last Admin: 12/20/17 18:21 Dose: 100 mg Guaifenesin (Robitussin) 100 mg PO Q4H PRN PRN Reason: Cough Last Admin: 12/18/17 19:04 Dose: 100 mg Nafcillin Sodium 2 gm/ Sodium (Chloride) 100 mls @ 100 mls/hr IVPB Q6 [facility]ARYANNE PRN Reason: Protocol Stop: 01/18/18 00:01 Last Admin: 12/20/17 23:28 Dose: 100 mls/hr Insulin Human Lispro (Humalog Med) 0 units SC ACHS [facility]ARYANNE PRN Reason: Protocol Last Admin: 12/20/17 23:29 Dose: Not Given Lisinopril (Zestril) 20 mg PO DAILY [facility] Metformin HCl (Glucophage) 500 mg PO BID [facility] Last Admin: 12/20/17 18:21 Dose: 500 mg Metoprolol Succinate (Toprol Xl) 25 mg PO BRK [facility] Last Admin: 12/20/17 07:51 Dose: 25 mg Polyethylene Glycol (Miralax) 17 gm PO BID [facility] Last Admin: 12/20/17 18:26 Dose: Not Given - Labs Labs: 12/19/17 05:30 12/19/17 05:30 PT 14.1 SECONDS (9.4-12.5) H 12/18/17 07:45 INR 1.22 (0.93-1.08) H 12/18/17 07:45 APTT 26.6 Seconds (25.1-36.5) 12/18/17 07:45 Attending/Attestation - Attestation I have personally seen and examined this patient.: Yes I have fully participated in the care of the patient.: Yes I have reviewed all pertinent clinical information, including history, physical exam and plan: Yes Notes (Text): This is an addendum to GI progress report dictated by the Electronic Equipment Repairer.The patient was seen and examined earlier. Medical records, lab studies, imagings were reviewed. Last 24 hours events reviewed. Agreed with the above treatment plan as outlined in Electronic Equipment Repairer 's notes the with the addition of the following His problems include staph aureus bacteremia. Iron deficiency anemia. large hepatomegaly and LFT. CAD HTN. Would recommend follow-up of H&H, continue PPI, iron supplement. Elective EGD colonoscopy. After cleared by ID. Discussed with patient and patient's daughter who was at bedside. 12/20/17 23:40 02/03/18 16:58
--- NOTE | 2017-12-20 11:09 | PN ---
DATE: 12/20/2017 CARDIOLOGY FOLLOWUP SUBJECTIVE: The patient was started on lisinopril yesterday. PHYSICAL EXAMINATION VITAL SIGNS: The blood pressure is not significantly changed, currently is 164/87, heart rate is in the 80s. No change in his physical exam. LABORATORY DATA: Laboratories are pending. The glucose is 242. Hemoglobin was not drawn today. IMPRESSION: 1. History of coronary artery bypass surgery. 2. Coronary artery disease. 3. Hypertension. 4. Sepsis. 5. Mild pulmonary hypertension. 6. Diabetes mellitus. PLAN: Given these findings, we will increase his lisinopril to 10 mg daily. Uri Baker MD
[2017-12-20] MEDS: POLYETHYLENE GLYCOL 3350 17 GM/Dose PACKET PO SCH ×2 (11:19→18:26)
[2017-12-20] MEDS: Vancomycin 1gm in NS 250ml 1 GM/250 ML BAG IVPB SCH (11:20)
--- NOTE | 2017-12-20 13:03 | PN ---
DATE: 12/20/2017 SUBJECTIVE: The patient is 57-year-old, seen and examined, lying in bed, seems to be comfortable. Still has left ear pain. No abdominal pain. No nausea or vomiting. No diarrhea. No hemoptysis. No hematemesis. PHYSICAL EXAMINATION: VITAL SIGNS: He is afebrile, pulse 84, respirations 20, blood pressure 165/87. LUNGS: Bilateral good airflow. No rhonchi or crackle. HEART: S1 and S2 audible. ABDOMEN: Soft. Nontender. No rebound. No guarding. NEUROLOGICAL: He is awake, alert, oriented, communicative. LABORATORY EXAM: Blood sugar is 309. ASSESSMENT: 1. Ascending colitis. 2. History of left ear otitis media. 3. Coronary artery disease, status post open heart surgery. 4. Persistent bacteremia with gram-positive cocci, first 2 bottles grew Staphylococcus aureus and second set on 12/18/2017, one bottle grew gram-positive cocci again. His echocardiogram is negative. CT scan of the abdomen and pelvis shows ascending colitis. Echocardiogram is negative for vegetation. 5. Hepatomegaly. 6. Hyperlipidemia. PLAN: Currently, the patient is on metronidazole. He is on Lipitor. He is getting MiraLax and Plavix. He is on Rocephin 1 g every 24 hours. The patient's oral intake is well, so I will discontinue IV fluid. I will continue on vancomycin 1 g every 12. I will request ENT evaluation since source of gram-positive coccemia is not clear. He is tentatively scheduled for endoscopy tomorrow. We will continue antibiotic for now. ID input noted and appreciated. We still do not have the source of coccemia; however, he will be covered with antibiotic empirically for now. Workup has been ordered. We will follow up in the a.m. Ivan Fung MD
[2017-12-20] MEDS: cefTRIAXone 1 gm 1 GM/100 ML BAG IVPB SCH (13:26)
--- NOTE | 2017-12-20 19:47 | CP.PCM.CON ---
History of Present Illness - History of Present Illness History of Present Illness: Approximately one week hx of left otalgia and decreased hearing. Pt seen and examined with agreement. The patient reports drastic improvement in left sided pain and hearing since receiving antibiotics during hospitalization. The patient denies hx of ear issues. The patient attests to a recent URI preceding otalgia. Review of Systems - Constitutional Constitutional: absent: Chills, Fatigue, Fever, Frequent Falls, Headache - EENT Eyes: As Per HPI Ears: As Per HPI Nose/Mouth/Throat: As Per HPI - Cardiovascular Cardiovascular: As Per HPI - Respiratory Respiratory: As Per HPI - Gastrointestinal Gastrointestinal: As Per HPI - Genitourinary Genitourinary: As Per HPI - Reproductive: Male Reproductive:Male: As Per HPI - Musculoskeletal Musculoskeletal: As Per HPI - Integumentary Integumentary: As Per HPI - Neurological Neurological: As Per HPI - Psychiatric Psychiatric: As Per HPI - Endocrine Endocrine: As Per HPI - Hematologic/Lymphatic Hematologic: As Per HPI Past Patient History - Infectious Disease Hx of Infectious Diseases: None - Past Social History Smoking Status: Never Smoked - CARDIAC Hx Hypertension: Yes - ENDOCRINE/METABOLIC Hx Diabetes Mellitus Type 1: Yes - MUSCULOSKELETAL/RHEUMATOLOGICAL Hx Falls: No - PSYCHIATRIC Hx Substance Use: No - SURGICAL HISTORY Hx Open Heart Surgery: Yes Other/Comment: R shoulder surgery - ANESTHESIA Hx Anesthesia Reactions: No Hx Malignant Hyperthermia: No Meds Allergies/Adverse Reactions: Allergies Allergy/AdvReac Type Severity Reaction Status Date / Time No Known Allergies Allergy Verified 12/16/17 17:59 - Medications Medications: Current Medications Acetaminophen (Tylenol 325mg Tab) 650 mg PO Q6H PRN PRN Reason: Fever >100.4 F Last Admin: 12/19/17 20:41 Dose: 650 mg Atorvastatin Calcium (Lipitor) 40 mg PO DAILY [facility] Last Admin: 12/20/17 11:20 Dose: 40 mg Clopidogrel Bisulfate (Plavix) 75 mg PO DAILY [facility] Last Admin: 12/20/17 11:21 Dose: 75 mg Docusate Sodium (Colace) 100 mg PO BID [facility] Last Admin: 12/20/17 18:21 Dose: 100 mg Guaifenesin (Robitussin) 100 mg PO Q4H PRN PRN Reason: Cough Last Admin: 12/18/17 19:04 Dose: 100 mg Vancomycin HCl (Vancomycin 1gm) 1 gm in 250 mls @ 167 mls/hr IVPB Q12H [facility]ARYANNE PRN Reason: Protocol Stop: 01/01/18 22:01 Last Admin: 12/20/17 11:20 Dose: 167 mls/hr Metronidazole (Flagyl) 250 mg in 50 mls @ 100 mls/hr IV Q8 [facility]ARYANNE PRN Reason: Protocol Stop: 12/23/17 22:01 Last Admin: 12/20/17 15:16 Dose: 100 mls/hr Ceftriaxone Sodium (Rocephin 1 Gram Ivpb) 1 gm in 100 mls @ 100 mls/hr IVPB DAILY [facility] PRN Reason: Protocol Stop: 12/23/17 10:59 Last Admin: 12/20/17 13:26 Dose: 100 mls/hr Insulin Human Lispro (Humalog Med) 0 units SC ACHS [facility] PRN Reason: Protocol Last Admin: 12/20/17 16:46 Dose: 5 unit Lisinopril (Zestril) 20 mg PO DAILY [facility] Metformin HCl (Glucophage) 500 mg PO BID [facility] Last Admin: 12/20/17 18:21 Dose: 500 mg Metoprolol Succinate (Toprol Xl) 25 mg PO BRK [facility] Last Admin: 12/20/17 07:51 Dose: 25 mg Polyethylene Glycol (Miralax) 17 gm PO BID [facility] Last Admin: 12/20/17 18:26 Dose: Not Given Physical Exam - Constitutional Appears: Well, Non-toxic, No Acute Distress - Head Exam Head Exam: ATRAUMATIC, NORMAL INSPECTION, NORMOCEPHALIC - Eye Exam Eye Exam: EOMI, Normal appearance - ENT Exam ENT Exam: Mucous Membranes Moist, Normal External Ear Exam Additional comments: left Ear canal and TM appear wnl. No fluid noted - Expanded ENT Exam Expanded Ear exam: absent: Auricular Hematoma, Auricular Trauma, External Canal Tenderness Mouth exam: normal external inspection Teeth exam: normal external inspection Throat exam: Normal Inspection - Neck Exam Neck exam: Positive for: Full Rom, Normal Inspection. Negative for: Lymphadenopathy, Tenderness - Respiratory Exam Respiratory Exam: NORMAL BREATHING PATTERN - Neurological Exam Neurological exam: Alert, CN II-XII Intact - Psychiatric Exam Psychiatric exam: Normal Affect, Normal Mood - Skin Skin Exam: Normal Color, Warm Results - Vital Signs Recent Vital Signs: Last Vital Signs Temp 98.7 F 12/20/17 14:00 Pulse 89 12/20/17 14:00 Resp 20 12/20/17 14:00 BP 142/75 12/20/17 14:00 Pulse Ox 99 12/20/17 14:00 - Labs Result Diagrams: 12/19/17 05:30 12/19/17 05:30 Labs: Laboratory Results - last 24 hr 12/18/17 12/19/17 12/19/17 09:51 05:30 15:49 POC Glucose (mg/dL) 237 H JARAD Screen Negative JARAD Titer TEST NOT PERFORMED JARAD Titer 2 TEST NOT PERFORMED JARAD Pattern TEST NOT PERFORMED JARAD Pattern 2 TEST NOT PERFORMED HIV 1&2 Ag/Ab, 4th Gen Nonreactive 12/19/17 12/20/17 12/20/17 21:32 05:57 11:21 POC Glucose (mg/dL) 270 H 242 H 309 H JARAD Screen JARAD Titer JARAD Titer 2 JARAD Pattern JARAD Pattern 2 HIV 1&2 Ag/Ab, 4th Gen 12/20/17 16:11 POC Glucose (mg/dL) 267 H JARAD Screen JARAD Titer JARAD Titer 2 JARAD Pattern JARAD Pattern 2 HIV 1&2 Ag/Ab, 4th Gen Assessment & Plan (1) Otalgia, left ear Status: Acute (2) GI bleed Status: Acute (3) Symptomatic anemia Status: Acute (4) Left otitis media Status: Acute - Assessment and Plan (Free Text) Plan: patient's ear issues are near completely resolved. F/u as out patient for audiogram - Date & Time Date: 12/20/17 Time: 19:47
[2017-12-20] MEDS: Nafcillin 2 GM in Sodium Chloride 0.9% 100 ML IVPB SCH (23:28)
--- NOTE | 2017-12-21 01:07 | PN ---
DATE: 12/20/2017 SUBJECTIVE: Patient is seen in bed, in no acute distress, nontoxic. No fevers. Overall improving. PHYSICAL EXAMINATION: VITAL SIGNS: Temperature is 98, blood pressure is 140/70, respiratory rate 20. HEENT: Unremarkable. NECK: Supple. LUNGS: Have decreased breath sounds. HEART: Normal S1 and S2. ABDOMEN: Soft and nontender. LABORATORY EXAMINATION: Reveals a white count is down to normal at 8000. Sed rate is elevated at 95 and chemistries are noted. Patient's C-reactive protein is also elevated at 177 and BUN of 9, creatinine of 0.8. Microbiology reveals the patient's multiple blood cultures are positive for Staph aureus, sensitive to nafcillin, oxacillin-sensitive Staph aureus with CLAUDINE of 0.5 and the repeat blood cultures on the 12/18/2017, one bottle is still positive and review of medications reveals the patient to be on Flagyl and patient is also on vancomycin and ceftriaxone. ASSESSMENT AND PLAN: This is a 57-year-old male with diabetes mellitus, admitted with sepsis with sensitive Staphylococcus aureus bacteremia and diabetic, must rule out undergoing endocarditis. Repeat blood cultures are positive and has high sedimentation rate and C-reactive protein and has also colitis probably related to the bacteremia. We will treat with nafcillin. Dr. Fung's note was reviewed and a transthoracic echo was negative for any vegetations. Dr. Uri Baker's note is reviewed. He states the patient has coronary artery bypass graft, coronary artery disease, hypertension, sepsis, multiple pulmonary hypertension, and recommended increasing the lisinopril and we will treat with nafcillin. Repeat blood cultures x prolonged antibiotic therapy. The elevated sedimentation rate and C-reactive protein and repeat blood cultures should have transesophageal echo and we will follow closely with you. Nitesh Ng MD
[2017-12-21] MEDS: Nafcillin 2 GM in Sodium Chloride 0.9% 100 ML IVPB SCH ×5 (05:33→23:55)
[2017-12-21] MEDS: Insulin Lispro (humaLOG) MEDIUM Coverage SC SCH ×4 (08:26→22:46)
[2017-12-21] MEDS: Metoprolol Succinate 25 mg XL Tab PO SCH (08:28)
[2017-12-21] MEDS: POLYETHYLENE GLYCOL 3350 17 GM/Dose PACKET PO SCH ×2 (09:57→17:49)
--- NOTE | 2017-12-21 12:11 | PN ---
DATE: 12/21/2017 CARDIOLOGY FOLLOWUP SUBJECTIVE: The patient as with persistent bacteremia. PHYSICAL EXAMINATION: VITAL SIGNS: Blood pressure is 165/85. The patient is afebrile. NECK: Negative JVD. LUNGS: Without rales. HEART: Reveals S1, S2. EXTREMITIES: Without edema. LABORATORY DATA: The white count is down to 8, hemoglobin is 10.3, BUN and creatinine were not measured today. Glucose is 252. IMPRESSION: 1. Recurrent bacteremia. 2. Coronary artery disease.. 3. Hypertension. 4. Mild pulmonary hypertension. 5. Diabetes mellitus. PLAN: Given these findings, the patient's blood pressure is being treated with lisinopril. We will increase his dosage today. In addition, I have discussed with the patient about CAITY to rule out endocarditis for his recurrent bacteremia. The patient is agreeable. He is scheduled for his CAITY on Sunday. Uri Baker MD
--- NOTE | 2017-12-21 12:53 | CP.PCM.PN ---
<Guerline Peralta - Last Filed: 12/21/17 12:52> Subjective - Date & Time of Evaluation Date of Evaluation: 12/21/17 Time of Evaluation: 10:40 - Subjective Subjective: Seen and examined at bedside, chart reviewed. Abdominal pain has improved and left lower quadrant, no diarrhea had one pasty BM, no blood noted. Tolerating oral intake. Patient endorses that he is feeling better. No new complaints. Objective - Vital Signs/Intake and Output Vital Signs (last 24 hours): Temp Pulse Resp BP Pulse Ox 98.3 F 88 20 165/85 H 97 12/21/17 07:57 12/21/17 09:56 12/21/17 07:57 12/21/17 09:56 12/21/17 07:57 Intake and Output: 12/21/17 12/21/17 06:59 18:59 Intake Total 800 Balance 800 - Medications Medications: Current Medications Acetaminophen (Tylenol 325mg Tab) 650 mg PO Q6H PRN PRN Reason: Fever >100.4 F Last Admin: 12/19/17 20:41 Dose: 650 mg Atorvastatin Calcium (Lipitor) 40 mg PO DAILY [facility] Last Admin: 12/21/17 09:56 Dose: 40 mg Clopidogrel Bisulfate (Plavix) 75 mg PO DAILY [facility] Last Admin: 12/21/17 09:56 Dose: 75 mg Docusate Sodium (Colace) 100 mg PO BID [facility] Last Admin: 12/21/17 09:56 Dose: 100 mg Guaifenesin (Robitussin) 100 mg PO Q4H PRN PRN Reason: Cough Last Admin: 12/18/17 19:04 Dose: 100 mg Hydrochlorothiazide (Microzide) 12.5 mg PO DAILY [facility] Nafcillin Sodium 2 gm/ Sodium (Chloride) 100 mls @ 100 mls/hr IVPB Q4 [facility] PRN Reason: Protocol Stop: 01/18/18 12:01 Insulin Human Lispro (Humalog Med) 0 units SC ACHS [facility] PRN Reason: Protocol Last Admin: 12/21/17 08:26 Dose: 5 unit Lisinopril (Zestril) 20 mg PO DAILY [facility] Last Admin: 12/21/17 09:56 Dose: 20 mg Metformin HCl (Glucophage) 500 mg PO BID [facility] Last Admin: 12/21/17 09:56 Dose: 500 mg Metoprolol Succinate (Toprol Xl) 25 mg PO BRK [facility] Last Admin: 12/21/17 08:28 Dose: 25 mg Polyethylene Glycol (Miralax) 17 gm PO BID [facility] Last Admin: 12/21/17 09:57 Dose: 17 gm - Labs Labs: 12/19/17 05:30 12/19/17 05:30 PT 14.1 SECONDS (9.4-12.5) H 12/18/17 07:45 INR 1.22 (0.93-1.08) H 12/18/17 07:45 APTT 26.6 Seconds (25.1-36.5) 12/18/17 07:45 - Constitutional Appears: No Acute Distress - Head Exam Head Exam: NORMOCEPHALIC - Eye Exam Eye Exam: Normal appearance. absent: Scleral icterus - ENT Exam ENT Exam: Mucous Membranes Moist - Neck Exam Neck Exam: Normal Inspection - Respiratory Exam Respiratory Exam: NORMAL BREATHING PATTERN. absent: Respiratory Distress - Cardiovascular Exam Cardiovascular Exam: +S1, +S2 - GI/Abdominal Exam GI & Abdominal Exam: Soft, Normal Bowel Sounds. absent: Guarding, Tenderness, Organomegaly, Rebound - Extremities Exam Extremities Exam: absent: Calf Tenderness, Pedal Edema - Neurological Exam Neurological Exam: Alert, Awake, Oriented x3 - Skin Skin Exam: Dry, Warm Assessment and Plan - Assessment and Plan (Free Text) Assessment: Assessment: Sepsis with Bacteremia: blood cultures positive for S. aureus. Repeat blood cultures positive for G+ cocci UTI, urine culture positive for S. aureus Anemia, s/p 2U PRBC, may be secondary to GI bleed (pt using NSAID at home) Resolved Transaminitis (resolved), could be drug induced Alk phos elevation w/ hepatomegaly maybe secondary to SPENCER v. autoimmune v. fatty liver CAD on Plavix HTN IDDM Plan: Echo did not show vegetations, but did show bicuspid aortic valve IV antibiotics as per ID Autoimmune markers are negative so far LKMA pending Continue PPI Diet as tolerated On Plavix Cardiology FU EGD when patient is medically optimized Seen and discussed with Dr. Coe. <Josseline Coe V - Last Filed: 01/09/18 17:27> Objective - Vital Signs/Intake and Output Vital Signs (last 24 hours): Temp Pulse Resp BP Pulse Ox 98.3 F 90 20 129/70 99 06/22/18 14:00 12/21/17 14:00 12/21/17 14:00 12/21/17 14:00 12/21/17 14:00 Intake and Output: 12/21/17 12/22/17 18:59 06:59 Intake Total 480 Balance 480 - Medications Medications: Current Medications Acetaminophen (Tylenol 325mg Tab) 650 mg PO Q6H PRN PRN Reason: Fever >100.4 F Last Admin: 12/19/17 20:41 Dose: 650 mg Atorvastatin Calcium (Lipitor) 40 mg PO DAILY [facility] Last Admin: 12/21/17 09:56 Dose: 40 mg Clopidogrel Bisulfate (Plavix) 75 mg PO DAILY [facility] Last Admin: 12/21/17 09:56 Dose: 75 mg Docusate Sodium (Colace) 100 mg PO BID [facility] Last Admin: 12/21/17 17:49 Dose: 100 mg Guaifenesin (Robitussin) 100 mg PO Q4H PRN PRN Reason: Cough Last Admin: 12/18/17 19:04 Dose: 100 mg Hydrochlorothiazide (Microzide) 12.5 mg PO DAILY [facility] Last Admin: 12/21/17 12:05 Dose: 12.5 mg Nafcillin Sodium 2 gm/ Sodium (Chloride) 100 mls @ 100 mls/hr IVPB Q4 [facility] PRN Reason: Protocol Stop: 01/18/18 12:01 Last Admin: 12/21/17 19:54 Dose: 100 mls/hr Insulin Human Lispro (Humalog Med) 0 units SC ACHS [facility] PRN Reason: Protocol Last Admin: 12/21/17 22:46 Dose: Not Given Lisinopril (Zestril) 20 mg PO DAILY [facility] Last Admin: 12/21/17 09:56 Dose: 20 mg Metformin HCl (Glucophage) 500 mg PO BID [facility] Last Admin: 12/21/17 17:49 Dose: 500 mg Metoprolol Succinate (Toprol Xl) 25 mg PO BRK [facility] Last Admin: 12/21/17 08:28 Dose: 25 mg Polyethylene Glycol (Miralax) 17 gm PO BID [facility] Last Admin: 12/21/17 17:49 Dose: Not Given Sitagliptin Phosphate (Januvia) 100 mg PO DAILY [facility] Last Admin: 12/21/17 17:49 Dose: 100 mg - Labs Labs: 12/19/17 05:30 12/19/17 05:30 PT 14.1 SECONDS (9.4-12.5) H 12/18/17 07:45 INR 1.22 (0.93-1.08) H 12/18/17 07:45 APTT 26.6 Seconds (25.1-36.5) 12/18/17 07:45 Attending/Attestation - Attestation I have personally seen and examined this patient.: Yes I have fully participated in the care of the patient.: Yes I have reviewed all pertinent clinical information, including history, physical exam and plan: Yes Notes (Text): This is an addendum to GI progress report dictated by Guerline Peralta APN.The patient was seen and examined earlier. Medical records, lab studies, imagings were reviewed. Last 24 hours events reviewed. Agreed with the above treatment plan as outlined in Guerline Peralta APN's notes the with the addition of the following: on exam abdomen was nontender having pasty brown stool, no blood Echo did not show vegetations, but did show bicuspid aortic valve IV antibiotics as per ID Autoimmune markers are negative so far LKMA pending Continue PPI Diet as tolerated On Plavix EGD when patient is medically optimized 12/21/17 23:41 01/09/18 17:26
--- NOTE | 2017-12-21 17:45 | PN ---
DATE: 12/21/2017 SUBJECTIVE: The patient is 57 years old, seen and examined, lying in bed, seems to be comfortable. No nausea or vomiting. No diarrhea. PHYSICAL EXAMINATION: VITAL SIGNS: The patient is afebrile, pulse 90, respirations 20, blood pressure 129/70. LUNGS: Bilateral fair airflow. No rhonchi or crackle. HEART: S1 and S2 audible. ABDOMEN: Soft. Nontender. No rebound. No guarding. NEUROLOGICAL: The patient is awake, alert, oriented, able to communicate, ambulatory. LABORATORY EXAM: Chemistry: Blood sugar is 318. Autoimmune tests are negative. HIV test is negative. His urine culture positive for Staphylococcus aureus; however, 3 blood cultures positive for Staph aureus. Has transthoracic echo done that is unremarkable. No signs of endocarditis. ASSESSMENT: 1. Staphylococcus bacteremia. 2. Ascending colitis. 3. Coronary artery disease, status post open heart surgery. 4. Hypertension. 5. Hyperlipidemia. PLAN: As per ID recommendation, the patient has been started on nafcillin. So plan is we will continue the patient on lisinopril, metoprolol, Plavix. He is on nafcillin, we will continue that. I will add Januvia to his regimen since his blood sugar is running high. The patient is scheduled to have CAITY done on Sunday. I will order for Chem-7 for tomorrow. Follow up the patient in the a.m. Ivan Fung MD
--- NOTE | 2017-12-21 21:31 | CP.PCM.PN ---
Subjective - Date & Time of Evaluation Date of Evaluation: 12/21/17 Time of Evaluation: 11:00 - Subjective Subjective: No fevers, no diarrhea, no abdominal pain currently. Objective - Vital Signs/Intake and Output Vital Signs (last 24 hours): Temp Pulse Resp BP Pulse Ox 98.3 F 90 20 129/70 99 12/21/17 14:00 12/21/17 14:00 12/21/17 14:00 12/21/17 14:00 12/21/17 14:00 - Medications Medications: Current Medications Acetaminophen (Tylenol 325mg Tab) 650 mg PO Q6H PRN PRN Reason: Fever >100.4 F Last Admin: 12/19/17 20:41 Dose: 650 mg Atorvastatin Calcium (Lipitor) 40 mg PO DAILY [facility] Last Admin: 12/21/17 09:56 Dose: 40 mg Clopidogrel Bisulfate (Plavix) 75 mg PO DAILY [facility] Last Admin: 12/21/17 09:56 Dose: 75 mg Docusate Sodium (Colace) 100 mg PO BID [facility] Last Admin: 12/21/17 17:49 Dose: 100 mg Guaifenesin (Robitussin) 100 mg PO Q4H PRN PRN Reason: Cough Last Admin: 12/18/17 19:04 Dose: 100 mg Hydrochlorothiazide (Microzide) 12.5 mg PO DAILY [facility] Last Admin: 12/21/17 12:05 Dose: 12.5 mg Nafcillin Sodium 2 gm/ Sodium (Chloride) 100 mls @ 100 mls/hr IVPB Q4 [facility] PRN Reason: Protocol Stop: 01/18/18 12:01 Last Admin: 12/21/17 19:54 Dose: 100 mls/hr Insulin Human Lispro (Humalog Med) 0 units SC ACHS [facility] PRN Reason: Protocol Last Admin: 12/21/17 16:18 Dose: 7 unit Lisinopril (Zestril) 20 mg PO DAILY [facility] Last Admin: 12/21/17 09:56 Dose: 20 mg Metformin HCl (Glucophage) 500 mg PO BID [facility] Last Admin: 12/21/17 17:49 Dose: 500 mg Metoprolol Succinate (Toprol Xl) 25 mg PO BRK [facility] Last Admin: 12/21/17 08:28 Dose: 25 mg Polyethylene Glycol (Miralax) 17 gm PO BID [facility] Last Admin: 12/21/17 17:49 Dose: Not Given Sitagliptin Phosphate (Januvia) 100 mg PO DAILY [facility] Last Admin: 12/21/17 17:49 Dose: 100 mg - Labs Labs: 12/19/17 05:30 12/19/17 05:30 PT 14.1 SECONDS (9.4-12.5) H 12/18/17 07:45 INR 1.22 (0.93-1.08) H 12/18/17 07:45 APTT 26.6 Seconds (25.1-36.5) 12/18/17 07:45 - Constitutional Appears: Chronically Ill - Head Exam Head Exam: NORMAL INSPECTION - Neck Exam Neck Exam: absent: Meningismus - Respiratory Exam Respiratory Exam: Decreased Breath Sounds - Cardiovascular Exam Cardiovascular Exam: +S1, +S2 - GI/Abdominal Exam GI & Abdominal Exam: Soft. absent: Tenderness Assessment and Plan - Assessment and Plan (Free Text) Plan: Assessment Sepsis due to MSSA bacteremia, persistent, cannot rule out endocarditis in this patient with ascending colitis CAD S/P CABG DM pulmonary HTN Plan continue Nafcillin to continue for 4-6 weeks with weekly ESR, CRP, CBC, CMP; reviewed 2D echo which does not show vegetations will follow up plan for colonoscopy
[2017-12-22] MEDS: Nafcillin 2 GM in Sodium Chloride 0.9% 100 ML IVPB SCH ×6 (03:31→23:18)
[2017-12-22 07:40] LABS: ALB/GLOB RATIO 0.7 (1.1-1.8); ALBUMIN 3.4 g/dL (3.0-4.8); CALCIUM 8.5 mg/dL (8.4-10.5)
[2017-12-22] MEDS: Insulin Lispro (humaLOG) MEDIUM Coverage SC SCH ×2 (08:13→12:05)
[2017-12-22] MEDS: Metoprolol Succinate 25 mg XL Tab PO SCH (08:27)
[2017-12-22] MEDS: POLYETHYLENE GLYCOL 3350 17 GM/Dose PACKET PO SCH ×3 (10:40→17:30)
--- NOTE | 2017-12-22 12:15 | CP.PCM.PN ---
Subjective - Date & Time of Evaluation Date of Evaluation: 12/22/17 Time of Evaluation: 11:40 - Subjective Subjective: No fevers, not in distress. Objective - Vital Signs/Intake and Output Vital Signs (last 24 hours): Temp Pulse Resp BP Pulse Ox 95 F L 94 H 20 128/80 99 12/22/17 06:00 12/22/17 06:00 12/22/17 06:00 12/22/17 06:00 12/22/17 06:00 Intake and Output: 12/22/17 12/22/17 06:59 18:59 Intake Total 780 Balance 780 - Medications Medications: Current Medications Acetaminophen (Tylenol 325mg Tab) 650 mg PO Q6H PRN PRN Reason: Fever >100.4 F Last Admin: 12/19/17 20:41 Dose: 650 mg Atorvastatin Calcium (Lipitor) 40 mg PO DAILY [facility] Last Admin: 12/22/17 10:41 Dose: 40 mg Clopidogrel Bisulfate (Plavix) 75 mg PO DAILY [facility] Last Admin: 12/22/17 10:41 Dose: 75 mg Docusate Sodium (Colace) 100 mg PO BID [facility] Last Admin: 12/22/17 10:41 Dose: 100 mg Guaifenesin (Robitussin) 100 mg PO Q4H PRN PRN Reason: Cough Last Admin: 12/18/17 19:04 Dose: 100 mg Hydrochlorothiazide (Microzide) 12.5 mg PO DAILY [facility] Last Admin: 12/22/17 10:41 Dose: 12.5 mg Nafcillin Sodium 2 gm/ Sodium (Chloride) 100 mls @ 100 mls/hr IVPB Q4 [facility] PRN Reason: Protocol Stop: 01/18/18 12:01 Last Admin: 12/22/17 08:27 Dose: 100 mls/hr Insulin Human Lispro (Humalog Med) 0 units SC ACHS [facility] PRN Reason: Protocol Last Admin: 12/22/17 08:13 Dose: 5 unit Lisinopril (Zestril) 20 mg PO DAILY [facility] Last Admin: 12/22/17 10:41 Dose: 20 mg Metformin HCl (Glucophage) 500 mg PO BID [facility] Last Admin: 12/22/17 10:41 Dose: 500 mg Metoprolol Succinate (Toprol Xl) 25 mg PO BRK [facility] Last Admin: 12/22/17 08:27 Dose: 25 mg Polyethylene Glycol (Miralax) 17 gm PO BID [facility] Last Admin: 12/22/17 10:44 Dose: Not Given Sitagliptin Phosphate (Januvia) 100 mg PO DAILY [facility] Last Admin: 12/22/17 10:41 Dose: 100 mg - Labs Labs: 12/19/17 05:30 12/22/17 07:00 PT 14.1 SECONDS (9.4-12.5) H 12/18/17 07:45 INR 1.22 (0.93-1.08) H 12/18/17 07:45 APTT 26.6 Seconds (25.1-36.5) 12/18/17 07:45 - Constitutional Appears: Chronically Ill - Head Exam Head Exam: NORMAL INSPECTION - Respiratory Exam Respiratory Exam: Decreased Breath Sounds - Cardiovascular Exam Cardiovascular Exam: +S1, +S2 - GI/Abdominal Exam GI & Abdominal Exam: Soft. absent: Tenderness Assessment and Plan - Assessment and Plan (Free Text) Plan: Assessment Sepsis due to MSSA bacteremia, persistent, cannot rule out endocarditis in this patient with ascending colitis CAD S/P CABG DM pulmonary HTN Plan continue Nafcillin to continue for 4-6 weeks (from 1st negative blood cx which are 12/21/2017) with weekly ESR, CRP, CBC, CMP; reviewed 2D echo which does not show vegetations will follow up plan for colonoscopy
[2017-12-22] MEDS: Insulin Lispro (HUMAlog) HIGH Coverage SC SCH ×2 (16:24→22:00)
[2017-12-22] MEDS: Insulin Lispro (humaLOG) MIX 75/25(10 ml) SC SCH (16:26)
[2017-12-23] MEDS: Nafcillin 2 GM in Sodium Chloride 0.9% 100 ML IVPB SCH ×6 (03:50→23:19)
[2017-12-23] MEDS: Metoprolol Succinate 25 mg XL Tab PO SCH (07:54)
[2017-12-23] MEDS: Insulin Lispro (humaLOG) MIX 75/25(10 ml) SC SCH ×2 (07:55→16:45)
[2017-12-23] MEDS: Insulin Lispro (HUMAlog) HIGH Coverage SC SCH ×4 (11:57→22:00)
[2017-12-23] MEDS: POLYETHYLENE GLYCOL 3350 17 GM/Dose PACKET PO SCH ×2 (12:00→17:23)
--- NOTE | 2017-12-23 13:47 | PN ---
DATE: 12/23/2017 SUBJECTIVE: Patient has no complaints of any chest pain. No shortness of breath. No headaches or dizziness. He says he feels well. He is sitting in a chair. OBJECTIVE: VITAL SIGNS: Temperature is 98.2, pulse of 89, blood pressure 130/78, respirations 20. GENERAL: The patient is lying in bed, flat, comfortable. HEENT: No oral lesion. Anicteric sclerae. Moist mucosa. NECK: No JVD, adenopathy, or thyromegaly. CARDIOVASCULAR: S1 and S2, regular. No murmurs, rubs, or gallops. LUNGS: Clear to auscultation bilaterally. No wheeze, rales, or rhonchi. ABDOMEN: Bowel sounds are positive, soft, nontender and nondistended. EXTREMITIES: No cyanosis, clubbing or edema. LABORATORY DATA: White count of 8, hemoglobin 10.3. Creatinine is 1.5. ASSESSMENT: 1. Staphylococcus Aureus sepsis. 2. Colitis. 3. Coronary artery disease status post coronary artery bypass graft. 4. Hypertension. 5. Dyslipidemia. 6. Diabetes type 2. PLAN: The patient is currently comfortable. He is currently on metformin for his diabetes. The patient is on Januvia for his diabetes as well. He is on Lipitor for dyslipidemia. He is on hydrochlorothiazide for his hypertension. He is on nafcillin for his antibiotics. He is being followed by ID. The patient is on lisinopril for his hypertension. He is currently comfortable. He had repeat blood culture that had been negative. Anthony Lynn MD
--- NOTE | 2017-12-23 16:49 | CP.PCM.PN ---
Subjective - Date & Time of Evaluation Date of Evaluation: 12/23/17 Time of Evaluation: 11:20 - Subjective Subjective: Resting comfortably in bed, no fevers. Objective - Vital Signs/Intake and Output Vital Signs (last 24 hours): Temp Pulse Resp BP Pulse Ox 98.2 F 89 20 130/78 97 12/23/17 06:00 12/23/17 06:00 12/23/17 06:00 12/23/17 06:00 12/23/17 06:00 Intake and Output: 12/23/17 12/23/17 06:59 18:59 Intake Total 960 Balance 960 - Medications Medications: Current Medications Acetaminophen (Tylenol 325mg Tab) 650 mg PO Q6H PRN PRN Reason: Fever >100.4 F Last Admin: 12/19/17 20:41 Dose: 650 mg Atorvastatin Calcium (Lipitor) 40 mg PO DAILY [facility] Last Admin: 12/22/17 10:41 Dose: 40 mg Clopidogrel Bisulfate (Plavix) 75 mg PO DAILY [facility] Last Admin: 12/22/17 10:41 Dose: 75 mg Docusate Sodium (Colace) 100 mg PO BID [facility] Last Admin: 12/22/17 17:30 Dose: Not Given Guaifenesin (Robitussin) 100 mg PO Q4H PRN PRN Reason: Cough Last Admin: 12/18/17 19:04 Dose: 100 mg Hydrochlorothiazide (Microzide) 12.5 mg PO DAILY [facility] Last Admin: 12/22/17 10:41 Dose: 12.5 mg Nafcillin Sodium 2 gm/ Sodium (Chloride) 100 mls @ 100 mls/hr IVPB Q4 [facility] PRN Reason: Protocol Stop: 01/18/18 12:01 Last Admin: 12/23/17 07:54 Dose: 100 mls/hr Insulin Human Lispro (Humalog High) 0 units SC ACHS [facility] PRN Reason: Protocol Last Admin: 12/22/17 22:00 Dose: Not Given Insulin Lispro Protam/Lispro Human (Humalog Mix 75/25) 20 units SC ACBD [facility] Last Admin: 12/23/17 07:55 Dose: 20 units Lisinopril (Zestril) 20 mg PO DAILY [facility] Last Admin: 12/22/17 10:41 Dose: 20 mg Metformin HCl (Glucophage) 500 mg PO BID [facility] Last Admin: 12/22/17 17:29 Dose: 500 mg Metoprolol Succinate (Toprol Xl) 25 mg PO BRK [facility] Last Admin: 12/23/17 07:54 Dose: 25 mg Polyethylene Glycol (Miralax) 17 gm PO BID [facility] Last Admin: 12/22/17 17:30 Dose: Not Given Sitagliptin Phosphate (Januvia) 100 mg PO DAILY [facility] Last Admin: 12/22/17 10:41 Dose: 100 mg - Labs Labs: 12/19/17 05:30 12/22/17 07:00 PT 14.1 SECONDS (9.4-12.5) H 12/18/17 07:45 INR 1.22 (0.93-1.08) H 12/18/17 07:45 APTT 26.6 Seconds (25.1-36.5) 12/18/17 07:45 - Constitutional Appears: Chronically Ill - Head Exam Head Exam: NORMAL INSPECTION - Respiratory Exam Respiratory Exam: Decreased Breath Sounds - Cardiovascular Exam Cardiovascular Exam: +S1, +S2 - GI/Abdominal Exam GI & Abdominal Exam: Soft. absent: Tenderness Assessment and Plan - Assessment and Plan (Free Text) Plan: Assessment Sepsis due to MSSA bacteremia, persistent, cannot rule out endocarditis in this patient with ascending colitis CAD S/P CABG DM pulmonary HTN Plan continue Nafcillin to continue for 4-6 weeks (from 1st negative blood cx which are 12/21/2017) with weekly ESR, CRP, CBC, CMP; reviewed 2D echo which does not show vegetations will follow up plan for colonoscopy
[2017-12-24] MEDS: Nafcillin 2 GM in Sodium Chloride 0.9% 100 ML IVPB SCH ×2 (03:40→08:13)
[2017-12-24 07:17] LABS: ALB/GLOB RATIO 0.7 (1.1-1.8); ALBUMIN 3.3 g/dL (3.0-4.8); CALCIUM 8.8 mg/dL (8.4-10.5)
[2017-12-24 07:22] LABS: BASO # 0.06 K/mm3 (0.0-2.0); BASO % 0.8 % (0.0-3.0); EOS # 0.5 (0.0-0.7); EOS % 7.1 % (1.5-5.0); GRAN # 4.2 (1.4-6.5); GRAN % 58.4 % (50.0-68.0); HEMOGLOBIN 10.7 g/dL (14.0-18.0); LYMPH # 1.9 (1.2-3.4); LYMPH % 26.9 % (22.0-35.0); MEAN CELL VOLUME 85.1 fl (80.0-105.0); MEAN CORPUSCULAR HGB CONC 31.8 g/dl (31.0-37.0); MEAN PLATELET VOLUME 9.5 fl (7.0-11.0); MONO # 0.5 (0.1-0.6); MONO % 6.8 % (1.0-6.0); RBC 3.96 10^6/uL (3.5-6.1); RED CELL DISTRIBUTION WIDTH 16.3 % (11.5-14.5); WHITE BLOOD COUNT 7.2 10^3/ul (4.5-11.0)
[2017-12-24] MEDS: Insulin Lispro (HUMAlog) HIGH Coverage SC SCH ×4 (08:13→21:48)
[2017-12-24] MEDS: Insulin Lispro (humaLOG) MIX 75/25(10 ml) SC SCH ×2 (08:13→16:41)
[2017-12-24] MEDS: Metoprolol Succinate 25 mg XL Tab PO SCH (08:18)
--- NOTE | 2017-12-24 09:01 | PN ---
DATE: 12/22/2017 SUBJECTIVE: The patient is 57-year-old, seen and examined, sitting in chair, seems to be comfortable. He states he feels lot better. No nausea or vomiting. No diarrhea. Eating and tolerating. PHYSICAL EXAMINATION VITAL SIGNS: He is afebrile, pulse 94, respiration 20, blood pressure 128/80. LUNGS: Bilateral fair airflow. No rhonchi or crackle. HEART: S1 and S2 audible. ABDOMEN: Soft, obese, nontender. No rebound, no guarding. NEUROLOGICAL: He is awake, alert, oriented. Able to communicate, ambulatory. LABORATORY EXAMINATION: ESR is 95, retic count is 155. Chemistries: Blood sugar is 355, alkaline phosphatase is 252. Urine is unremarkable. Autoimmune disease workup is negative. Hepatitis profile is negative. HIV test is negative. Transthoracic echocardiogram is unremarkable. Three blood cultures are positive; however, blood culture drawn on 12/21/2017 shows no growth after 24 hours. ASSESSMENT: 1. Staphylococcus aureus urinary tract infection. 2. Staphylococcus aureus bacteremia. 3. Hepatomegaly. 4. Recent episode of otitis media. 5. Coronary artery disease status post open heart surgery. 6. Insulin-dependent diabetes. PLAN: The patient's blood sugar is running high. I will start him on Humalog. The patient is scheduled to have CAITY done on Sunday. Continue current antibiotics. We will follow up this patient in a.m. Ivan Fung MD
--- NOTE | 2017-12-24 12:37 | CP.PCM.PN ---
<Petty Villanueva - Last Filed: 12/24/17 12:33> Subjective - Date & Time of Evaluation Date of Evaluation: 12/24/17 Time of Evaluation: 07:00 - Subjective Subjective: GI Progress Note for Nikko Anand PGY2 Patient seen and examined at bedside. There were no acute overnight events as per nursing staff. Patient is complaining of diarrhea. He is on stool softener and antibiotics. He denies blood or dark colored stool. He denies chest pain, shortness of breath, fever/chills, numbness/tingling, abdominal pain, nausea or vomiting. Objective - Vital Signs/Intake and Output Vital Signs (last 24 hours): Temp Pulse Resp BP Pulse Ox 98.6 F 73 20 112/73 97 12/24/17 06:00 12/24/17 06:00 12/24/17 06:00 12/24/17 06:00 12/24/17 06:00 Intake and Output: 12/24/17 12/24/17 06:59 18:59 Intake Total 840 Balance 840 - Medications Medications: Current Medications Acetaminophen (Tylenol 325mg Tab) 650 mg PO Q6H PRN PRN Reason: Fever >100.4 F Last Admin: 12/19/17 20:41 Dose: 650 mg Atorvastatin Calcium (Lipitor) 40 mg PO DAILY [facility] Last Admin: 12/23/17 09:41 Dose: 40 mg Clopidogrel Bisulfate (Plavix) 75 mg PO DAILY [facility] Last Admin: 12/23/17 09:41 Dose: 75 mg Guaifenesin (Robitussin) 100 mg PO Q4H PRN PRN Reason: Cough Last Admin: 12/18/17 19:04 Dose: 100 mg Hydrochlorothiazide (Microzide) 12.5 mg PO DAILY [facility] Last Admin: 12/23/17 09:41 Dose: 12.5 mg Cefazolin Sodium 2 gm/ Sodium (Chloride) 100 mls @ 200 mls/hr IVPB Q8 MARYANNE PRN Reason: Protocol Insulin Human Lispro (Humalog High) 0 units SC ACHS MARYANNE PRN Reason: Protocol Last Admin: 12/24/17 08:13 Dose: Not Given Insulin Lispro Protam/Lispro Human (Humalog Mix 75/25) 20 units SC ACBD [facility] Last Admin: 12/24/17 08:13 Dose: Not Given Lisinopril (Zestril) 20 mg PO DAILY [facility] Last Admin: 12/23/17 09:41 Dose: 20 mg Metformin HCl (Glucophage) 500 mg PO BID [facility] Last Admin: 12/23/17 17:23 Dose: 500 mg Metoprolol Succinate (Toprol Xl) 25 mg PO BRK [facility] Last Admin: 12/24/17 08:18 Dose: Not Given Sitagliptin Phosphate (Januvia) 100 mg PO DAILY [facility] Last Admin: 12/23/17 09:41 Dose: 100 mg - Labs Labs: 12/24/17 06:51 12/24/17 06:51 PT 14.1 SECONDS (9.4-12.5) H 12/18/17 07:45 INR 1.22 (0.93-1.08) H 12/18/17 07:45 APTT 26.6 Seconds (25.1-36.5) 12/18/17 07:45 - Constitutional Appears: No Acute Distress - Head Exam Head Exam: ATRAUMATIC, NORMAL INSPECTION, NORMOCEPHALIC - Eye Exam Eye Exam: Normal appearance, PERRL Pupil Exam: NORMAL ACCOMODATION - ENT Exam ENT Exam: Mucous Membranes Moist - Respiratory Exam Respiratory Exam: Clear to Ausculation Bilateral, NORMAL BREATHING PATTERN. absent: Rales, Rhonchi, Wheezes - Cardiovascular Exam Cardiovascular Exam: REGULAR RHYTHM, +S1, +S2. absent: Gallop, Rubs, Murmur - GI/Abdominal Exam GI & Abdominal Exam: Soft, Normal Bowel Sounds. absent: Rigid, Tenderness, Mass , Rebound - Extremities Exam Extremities Exam: Normal Inspection. absent: Calf Tenderness, Pedal Edema - Neurological Exam Neurological Exam: Alert, Awake, CN II-XII Intact, Oriented x3 - Skin Skin Exam: Dry, Warm Assessment and Plan - Assessment and Plan (Free Text) Assessment: This is a 57yo American male with past medical history of IDDM, CAD, HTN, HLD who was admitted for 1. Sepsis with Bacteremia - Both blood cultures positive for MSSA x 2 - 3rd set of blood culture negative thus far - Urine culture positive for MSSA 2. Colitis - seen on CT - patient denies having abdominal pain 3. Diarrhea - secondary to stool softener v. C.diff 4. Anemia (iron deficiency) - stable - Can be secondary to GI bleed (pt using NSAID at home) - S/p 2U PRBC 5. Alk phos elevation w/ hepatomegaly - secondary to SPENCER v. autoimmune v. fatty liver 6. CAD on Plavix Plan: Patient is getting CAITY today to rule out endocarditis. ID on consult. Patient is on antibiotics. He is also on Plavix. Plan is for diagnostic EGD tomorrow to look for any source of anemia in the setting of previous NSAID use. Hgb is stable. Will continue to monitor H/H. NPO at midnight. Case seen, discussed and reviewed with Dr. Coe. Nikko Villanueva PGY2 <Josseline Coe V - Last Filed: 02/03/18 17:04> Objective - Vital Signs/Intake and Output Vital Signs (last 24 hours): Temp Pulse Resp BP Pulse Ox 98 F 81 12 126/83 99 12/24/17 14:16 12/24/17 14:16 12/24/17 14:16 12/24/17 14:16 12/24/17 14:16 Intake and Output: 12/24/17 12/25/17 18:59 06:59 Intake Total 100 Balance 100 - Medications Medications: Current Medications Acetaminophen (Tylenol 325mg Tab) 650 mg PO Q6H PRN PRN Reason: Fever >100.4 F Last Admin: 12/19/17 20:41 Dose: 650 mg Atorvastatin Calcium (Lipitor) 40 mg PO DAILY [facility] Last Admin: 12/24/17 14:15 Dose: Not Given Clopidogrel Bisulfate (Plavix) 75 mg PO DAILY [facility] Last Admin: 12/24/17 16:35 Dose: Not Given Guaifenesin (Robitussin) 100 mg PO Q4H PRN PRN Reason: Cough Last Admin: 12/18/17 19:04 Dose: 100 mg Hydrochlorothiazide (Microzide) 12.5 mg PO DAILY [facility] Last Admin: 12/24/17 16:35 Dose: Not Given Cefazolin Sodium 2 gm/ Sodium (Chloride) 100 mls @ 200 mls/hr IVPB Q8 MARYANNE PRN Reason: Protocol Last Admin: 12/24/17 16:41 Dose: 200 mls/hr Insulin Human Lispro (Humalog High) 0 units SC ACHS MARYANNE PRN Reason: Protocol Last Admin: 12/24/17 16:42 Dose: Not Given Insulin Lispro Protam/Lispro Human (Humalog Mix 75/25) 20 units SC ACBD [facility] Last Admin: 12/24/17 16:41 Dose: 20 units Lisinopril (Zestril) 20 mg PO DAILY [facility] Last Admin: 12/24/17 16:35 Dose: Not Given Metformin HCl (Glucophage) 500 mg PO BID [facility] Last Admin: 12/24/17 17:05 Dose: 500 mg Metoprolol Succinate (Toprol Xl) 25 mg PO BRK [facility] Last Admin: 12/24/17 08:18 Dose: Not Given Sitagliptin Phosphate (Januvia) 100 mg PO DAILY [facility] Last Admin: 12/24/17 14:15 Dose: Not Given - Labs Labs: 12/24/17 06:51 12/24/17 06:51 PT 14.1 SECONDS (9.4-12.5) H 12/18/17 07:45 INR 1.22 (0.93-1.08) H 12/18/17 07:45 APTT 26.6 Seconds (25.1-36.5) 12/18/17 07:45 Attending/Attestation - Attestation I have personally seen and examined this patient.: Yes I have fully participated in the care of the patient.: Yes I have reviewed all pertinent clinical information, including history, physical exam and plan: Yes Notes (Text): This is an addendum to GI consult report dictated by the Exotic Dancer.The patient was seen and examined earlier. Medical records, lab studies, imagings were reviewed. Last 24 hours events reviewed. Agreed with the above treatment plan as outlined in Exotic Dancer 's notes the with the addition of the following Plan for CAITY. Complete antibiotics for colitis. Also on antibiotics for staph aureus bacteremia. Follow-up of hemoglobin. Schedule for EGD tomorrow. 12/24/17 21:29 02/03/18 17:00
[2017-12-24] MEDS ORDERED: Midazolam 2 MG/2 ML VIAL ONE (13:02)
[2017-12-24] MEDS ORDERED: Flumazenil 0.1 mg/ml Inj (5ml) IVP ONE (13:03)
[2017-12-24] MEDS ORDERED: Naloxone 0.4 mg/ml Inj (Adult) ONE (13:03)
[2017-12-24] MEDS ORDERED: Midazolam 2 MG/2 ML VIAL IV ONE ×2 (13:21→13:23)
[2017-12-24] MEDS ORDERED: Sodium Chloride 0.9% 1,000 ML IV SCH (13:45)
[2017-12-24 15:44] LABS: URINE APPEARANCE CLEAR (CLEAR); URINE BILIRUBIN NEGATIVE (NEGATIVE); URINE BLOOD TRACE-LYSED (NEGATIVE); URINE COLOR LIGHT YELLOW (YELLOW); URINE GLUCOSE (UA) NEGATIVE (NEGATIVE); URINE LEUKOCYTE ESTERASE NEGATIVE Leu/uL (NEGATIVE); URINE PROTEIN NEGATIVE mg/dL (<30 mg/dL); URINE UROBILINOGEN 0.2 E.U./dL (<1 E.U./dL)
[2017-12-24 15:57] LABS: URINE BACTERIA NEG (NEG); URINE EPITHELIAL CELLS 0 - 2 /hpf (0-5); URINE RBC 0 - 2 /hpf (0-2)
--- NOTE | 2017-12-24 16:37 | CARD ---
APPROVED REPORT EXAM: Transesophageal echocardiogram with color flow Doppler. INDICATION Infection : Rule out subacute bacterial endocarditis Reason For Test : Rule out endocarditis. PROCEDURE After obtaining informed consent, patient underwent transesophageal echo in the Echo Lab. Type of Sedation : Conscious Sedation Sedation was administered by Dr. mckeon. Sedation was achieved with Versed and , Fentanyl 2mg and 100 mcg intravenously. Transesophageal probe was inserted and advanced into esophagus without difficulty. Echo enhancement indication: R/O Septal defect. Echo enhancement agent administered: Agitated Saline The CAITY was performed without complications. Throughout the procedure, the blood pressure, pulse oximetry, cardiac rhythm, and rate were monitored. The patient tolerated the procedure without adverse effects. Recovery from conscious sedation was uneventful and vital signs were stable. LEFT VENTRICLE The left ventricle is normal size. There is normal left ventricular wall thickness. The left ventricular function is normal.EF-55-60% There is normal LV segmental wall motion. The left ventricular diastolic function is normal. No left ventricle thrombus noted on this study. There is no ventricular septal defect visualized. There is no left ventricular aneurysm. There is no mass noted in the left ventricle. RIGHT VENTRICLE The right ventricle is normal size. There is normal right ventricular wall thickness. The right ventricular systolic function is normal. ATRIA The left atrium size is normal. The right atrium size is normal. The interatrial septum is intact with no evidence for an atrial septal defect. AORTIC VALVE The aortic valve is mildly thickened. No aortic regurgitation is present. There is no aortic valvular stenosis. There is no aortic valvular vegetation. MITRAL VALVE The mitral valve leaflets are thickened. There is no evidence of mitral valve prolapse. There is no mitral valve stenosis. Mitral regurgitation is trace. TRICUSPID VALVE The tricuspid valve leaflets display thickening. There is trace tricuspid regurgitation. There is no tricuspid valve prolapse or vegetation. There is no tricuspid valve stenosis. PULMONIC VALVE The pulmonary valve is normal in structure. There is trace pulmonic valvular regurgitation. There is no pulmonic valvular stenosis. GREAT VESSELS The aortic root is normal in size. The ascending aorta is normal in size. The pulmonary artery is normal. The IVC is normal in size and collapses >50% with inspiration. PERICARDIAL EFFUSION There is no pericardial effusion. There is no pleural effusion. <Conclusion> Normal chamber size, EF-55-60% Trace MR/TR/PI. Intact Intra atrial septum by color flow and Bubble study. Mild plaque in desceding aorta. Velocity in CAROLYNN more than 0.4 m/s No Vegetation or thrombus noted.
[2017-12-24] MEDS: ceFAZolin 2 GM in Sodium Chloride 0.9% 100 ML IVPB SCH ×2 (16:41→21:48)
--- NOTE | 2017-12-24 18:06 | CP.PCM.PN ---
Subjective - Date & Time of Evaluation Date of Evaluation: 12/24/17 Time of Evaluation: 11:05 - Subjective Subjective: No fevers, comfortable. Objective - Vital Signs/Intake and Output Vital Signs (last 24 hours): Temp Pulse Resp BP Pulse Ox 98.6 F 73 20 112/73 97 12/24/17 06:00 12/24/17 06:00 12/24/17 06:00 12/24/17 06:00 12/24/17 06:00 Intake and Output: 12/24/17 12/24/17 06:59 18:59 Intake Total 840 Balance 840 - Medications Medications: Current Medications Acetaminophen (Tylenol 325mg Tab) 650 mg PO Q6H PRN PRN Reason: Fever >100.4 F Last Admin: 12/19/17 20:41 Dose: 650 mg Atorvastatin Calcium (Lipitor) 40 mg PO DAILY [facility] Last Admin: 12/23/17 09:41 Dose: 40 mg Clopidogrel Bisulfate (Plavix) 75 mg PO DAILY [facility] Last Admin: 12/23/17 09:41 Dose: 75 mg Guaifenesin (Robitussin) 100 mg PO Q4H PRN PRN Reason: Cough Last Admin: 12/18/17 19:04 Dose: 100 mg Hydrochlorothiazide (Microzide) 12.5 mg PO DAILY [facility] Last Admin: 12/23/17 09:41 Dose: 12.5 mg Cefazolin Sodium 2 gm/ Sodium (Chloride) 100 mls @ 200 mls/hr IVPB Q8 MARYANNE PRN Reason: Protocol Insulin Human Lispro (Humalog High) 0 units SC ACHS MARYANNE PRN Reason: Protocol Last Admin: 12/24/17 08:13 Dose: Not Given Insulin Lispro Protam/Lispro Human (Humalog Mix 75/25) 20 units SC ACBD [facility] Last Admin: 12/24/17 08:13 Dose: Not Given Lisinopril (Zestril) 20 mg PO DAILY [facility] Last Admin: 12/23/17 09:41 Dose: 20 mg Metformin HCl (Glucophage) 500 mg PO BID [facility] Last Admin: 12/23/17 17:23 Dose: 500 mg Metoprolol Succinate (Toprol Xl) 25 mg PO BRK [facility] Last Admin: 12/24/17 08:18 Dose: Not Given Sitagliptin Phosphate (Januvia) 100 mg PO DAILY [facility] Last Admin: 12/23/17 09:41 Dose: 100 mg - Labs Labs: 12/24/17 06:51 12/24/17 06:51 PT 14.1 SECONDS (9.4-12.5) H 12/18/17 07:45 INR 1.22 (0.93-1.08) H 12/18/17 07:45 APTT 26.6 Seconds (25.1-36.5) 12/18/17 07:45 - Constitutional Appears: Non-toxic, Chronically Ill - Head Exam Head Exam: NORMAL INSPECTION - Respiratory Exam Respiratory Exam: Decreased Breath Sounds - Cardiovascular Exam Cardiovascular Exam: +S1, +S2 - GI/Abdominal Exam GI & Abdominal Exam: Soft. absent: Tenderness Assessment and Plan - Assessment and Plan (Free Text) Plan: Assessment Sepsis due to MSSA bacteremia, persistent, cannot rule out endocarditis in this patient with ascending colitis CAD S/P CABG DM pulmonary HTN Plan continue Nafcillin to continue for 4-6 weeks (from 1st negative blood cx which are 12/21/2017) with weekly ESR, CRP, CBC, CMP; reviewed 2D echo which does not show vegetations discussed with Dr. Fung
--- NOTE | 2017-12-25 01:23 | PN ---
DATE: 12/24/2017 SUBJECTIVE: The patient is [id number], seen and examined, doing a lot better, belly pain is almost gone. Ear pain is better. No nausea or vomiting. No diarrhea. Eating and tolerating. PHYSICAL EXAMINATION VITAL SIGNS: He is afebrile, pulse 81, respiration 12, blood pressure 126/83. LUNGS: Bilateral good airflow. No rhonchi or crackle. HEART: S1 and S2 audible. ABDOMEN: Soft, nontender. No rebound, no guarding. NEUROLOGICAL: He is awake, alert, oriented, communicative. LABORATORY DATA: WBC is 7.2, hemoglobin 10.7, hematocrit 33.7, platelet of 260 . Chemistries: Sodium 142, potassium 4.6, chloride 103, CO2 of 29, BUN 23, creatinine 1.6. Blood sugar of 178. His three blood cultures positive for Staphylococcus aureus. Urine positive for Staphylococcus aureus too. Echocardiogram is unremarkable. ASSESSMENT: 1. Bacteremia with Staphylococcus aureus. 2. Insulin dependent diabetes. 3. Hypertension. 4. Ascending colitis. 5. History of pulmonary hypertension. 6. Coronary artery disease status post open heart surgery. PLAN: Discussed with Dr. Bro. The patient needs to have IV antibiotic for 4 to 6 weeks. He can be switched to Rocephin 2 g daily. I will order for PICC line by Dr. Uri Andersen. Once he has PICC line in, adoption social worker will need to make arrangement if he has to come to the hospital for IV insulin or it could be arranged at home. Once PICC is in, we will make discharge plan. Ivan Fung MD
[2017-12-25] MEDS: ceFAZolin 2 GM in Sodium Chloride 0.9% 100 ML IVPB SCH ×3 (05:45→22:07)
[2017-12-25 07:22] LABS: HEMOGLOBIN 10.4 g/dL (14.0-18.0); MEAN CELL VOLUME 84.6 fl (80.0-105.0); MEAN CORPUSCULAR HEMOGLOBIN 27.1 pg (25.0-35.0); MEAN PLATELET VOLUME 9.9 fl (7.0-11.0); RBC 3.84 10^6/uL (3.5-6.1); RED CELL DISTRIBUTION WIDTH 16.2 % (11.5-14.5); WHITE BLOOD COUNT 5.9 10^3/ul (4.5-11.0)
[2017-12-25 07:31] LABS: BLOOD UREA NITROGEN 19 mg/dL (7-21); CALCIUM 8.4 mg/dL (8.4-10.5); GFR NON-AFRICAN AMERICAN 57
[2017-12-25] MEDS: Insulin Lispro (humaLOG) MIX 75/25(10 ml) SC SCH ×2 (07:51→17:53)
[2017-12-25 07:54] LABS: INR 1.23 (0.93-1.08); PARTIAL THROMBOPLASTIN TIME 26.8 Seconds (25.1-36.5); PROTHROMBIN TIME 14.2 SECONDS (9.4-12.5)
[2017-12-25] MEDS: Metoprolol Succinate 25 mg XL Tab PO SCH (10:50)
[2017-12-25] MEDS: Insulin Lispro (HUMAlog) HIGH Coverage SC SCH ×4 (10:51→22:25)
--- NOTE | 2017-12-25 10:53 | PN ---
DATE: 12/25/2017 CARDIOLOGY FOLLOWUP The patient tolerated CAITY well. There is no evidence for endocarditis. OBJECTIVE: VITAL SIGNS: blood pressure varies from 126 to 150. NECK: Negative JVD. LUNGS: Without rales. HEART: Reveal S1, S2. EXTREMITIES: Without edema. DATA: Hemoglobin is 10.4. Chemistries: BUN and creatinine unremarkable. IMPRESSION: 1. No evidence for endocarditis. 2. Bacteremia. 3. Diabetes mellitus. 4. Mild pulmonary hypertension. 5. History of coronary artery disease. Given these findings, no further cardiac workup is indicated at this time. The patient is scheduled for IV antibiotics at home. Uri Baker MD
--- NOTE | 2017-12-25 11:29 | PN ---
DATE: 12/25/2017 SUBJECTIVE: The patient is a 57-year-old, seen and examined, doing well, anxious to go home. No nausea, vomiting or diarrhea, eating and tolerating. No abdominal pain. No knee pain. No ear pain. PHYSICAL EXAMINATION: VITAL SIGNS: He is afebrile, pulse 83, respirations 20, blood pressure 150/82. LUNGS: Bilateral good airflow. No rhonchi or crackle. HEART: S1, S2 audible. ABDOMEN: Soft, obese, nontender. No rebound, no guarding. NEUROLOGICAL: The patient is awake, alert, oriented, communicative. LABORATORY DATA: WBC is 5.9, hemoglobin 10.4, hematocrit 32.5, platelets of 198. PT 14.2, INR 1.23. Chemistry: Sodium 141, potassium 4.1, chloride 105, CO2 27, BUN 19, creatinine 1.3, blood sugar of 169. A repeat echocardiogram done negative for endocarditis. ASSESSMENT AND PLAN: 1. Status post Staphylococcus aureus bacteremia, source still unknown, studies are negative for endocarditis. 2. Insulin-dependent diabetes. 3. Hypertension. 4. Ascending colitis, seems to be resolving. 5. Coronary artery disease, status post open heart surgery in remote past. 6. History of pulmonary hypertension. PLAN: The patient is getting PICC line, spoke to [facility] Supervisor. The patient will be switched to Rocephin 2 g daily, so either he will come to the hospital to have this infusion done for four to six weeks or they will make home infusion; whatever arrangement is being made, the patient will be discharged either today or tomorrow once arrangements have been . Ivan Fung MD
[2017-12-25] MEDS ORDERED: Propofol 10 mg/ml Inj (20 ML) ONE (15:58)
[2017-12-25] MEDS: Sodium Chloride 0.9% 1,000 ML IV SCH (22:07)
--- NOTE | 2017-12-25 23:03 | PN ---
DATE: 12/25/2017 SUBJECTIVE: The patient is in bed, was seen earlier in room 578, bed 2 this morning. Patient was doing well. No fevers. No chills. No nausea. PHYSICAL EXAMINATION: VITAL SIGNS: Temperature is 98, blood pressure is 111/60, respiratory rate 12. HEENT: Unremarkable. NECK: Supple. LUNGS: Have decreased breath sounds. HEART: Normal S1 and S2. ABDOMEN: Soft, nontender. LABORATORY EXAMINATION: Reveals a white count of 5.9, hemoglobin of 10, BUN of 19, creatinine of 1.3. C-reactive protein is 29.50. Patient's sed rate is 95. HIV is negative. Hepatitis profile is negative. Microbiology reveals blood culture are negative from the . Patient had a transesophageal echo, by Dr. Macias, no vegetation or thrombus is noted. ASSESSMENT AND PLAN: A 57-year-old with sepsis secondary to sensitive Staphylococcus aureus bacteremia, which has been persistent with the negative transesophageal echocardiogram, coronary artery disease, status post coronary artery bypass graft, diabetic, pulmonary hypertension. Cultures have been negative from the , today is day #5, will continue 28 days, for the 2 days following sed rate, C-reactive protein. . Patient currently on Ancef 2 g every 8 hours. We will follow with you. Nitesh Ng MD
[2017-12-26] MEDS: ceFAZolin 2 GM in Sodium Chloride 0.9% 100 ML IVPB SCH ×2 (06:29→13:44)
--- NOTE | 2017-12-26 08:26 | CP.PCM.PN ---
<Petty Villanueva - Last Filed: 12/26/17 17:46> Subjective - Date & Time of Evaluation Date of Evaluation: 12/26/17 Time of Evaluation: 07:00 - Subjective Subjective: GI Progress Note for Nikko Anand PGY2 Patient seen and examined at bedside. There were no acute overnight events as per nursing staff. Patient reports once episode of soft BM. He denies abdominal pain, chest pain, shortness of breath, numbness/tingling, fever/chills, dysuria/ hematuria, nausea/vomiting. Objective - Vital Signs/Intake and Output Vital Signs (last 24 hours): Temp Pulse Resp BP Pulse Ox 98.4 F 80 18 147/81 100 12/25/17 22:03 12/25/17 22:03 12/25/17 22:03 12/25/17 22:03 12/25/17 22:03 Intake and Output: 12/26/17 12/26/17 06:59 18:59 Intake Total 660 Balance 660 - Medications Medications: Current Medications Acetaminophen (Tylenol 325mg Tab) 650 mg PO Q6H PRN PRN Reason: Fever >100.4 F Last Admin: 12/19/17 20:41 Dose: 650 mg Atorvastatin Calcium (Lipitor) 40 mg PO DAILY [facility] Last Admin: 12/25/17 10:50 Dose: 40 mg Clopidogrel Bisulfate (Plavix) 75 mg PO DAILY [facility] Last Admin: 12/25/17 10:50 Dose: 75 mg Guaifenesin (Robitussin) 100 mg PO Q4H PRN PRN Reason: Cough Last Admin: 12/18/17 19:04 Dose: 100 mg Hydrochlorothiazide (Microzide) 12.5 mg PO DAILY [facility] Last Admin: 12/25/17 10:50 Dose: 12.5 mg Cefazolin Sodium 2 gm/ Sodium (Chloride) 100 mls @ 200 mls/hr IVPB Q8 [facility] PRN Reason: Protocol Last Admin: 12/26/17 06:29 Dose: 200 mls/hr Sodium Chloride (Sodium Chloride 0.9%) 1,000 mls @ 100 mls/hr IV .Q10H [facility] Last Admin: 12/25/17 22:07 Dose: 100 mls/hr Insulin Human Lispro (Humalog High) 0 units SC ACHS [facility] PRN Reason: Protocol Last Admin: 12/25/17 22:25 Dose: Not Given Insulin Lispro Protam/Lispro Human (Humalog Mix 75/25) 20 units SC ACBD [facility] Last Admin: 12/25/17 17:53 Dose: 20 units Lisinopril (Zestril) 20 mg PO DAILY [facility] Last Admin: 12/25/17 10:49 Dose: 20 mg Metformin HCl (Glucophage) 500 mg PO BID [facility] Last Admin: 12/25/17 17:46 Dose: 500 mg Metoprolol Succinate (Toprol Xl) 25 mg PO BRK [facility] Last Admin: 12/25/17 10:50 Dose: 25 mg Sitagliptin Phosphate (Januvia) 100 mg PO DAILY [facility] Last Admin: 12/25/17 10:51 Dose: 100 mg - Labs Labs: 12/25/17 07:00 12/25/17 07:00 PT 14.2 SECONDS (9.4-12.5) H 12/25/17 07:00 INR 1.23 (0.93-1.08) H 12/25/17 07:00 APTT 26.8 Seconds (25.1-36.5) 12/25/17 07:00 - Constitutional Appears: No Acute Distress - Head Exam Head Exam: ATRAUMATIC, NORMAL INSPECTION, NORMOCEPHALIC - Eye Exam Eye Exam: Normal appearance, PERRL Pupil Exam: NORMAL ACCOMODATION - ENT Exam ENT Exam: Mucous Membranes Moist - Respiratory Exam Respiratory Exam: Clear to Ausculation Bilateral, NORMAL BREATHING PATTERN. absent: Rales, Rhonchi, Wheezes - Cardiovascular Exam Cardiovascular Exam: REGULAR RHYTHM, +S1, +S2. absent: Gallop, Rubs, Murmur - GI/Abdominal Exam GI & Abdominal Exam: Soft, Normal Bowel Sounds. absent: Rigid, Tenderness, Mass , Rebound - Extremities Exam Extremities Exam: Normal Inspection. absent: Calf Tenderness, Pedal Edema - Neurological Exam Neurological Exam: Alert, Awake, CN II-XII Intact, Oriented x3 - Psychiatric Exam Psychiatric exam: Normal Affect, Normal Mood - Skin Skin Exam: Dry, Warm Assessment and Plan - Assessment and Plan (Free Text) Assessment: This is a 57yo [place] male with past medical history of IDDM, CAD, HTN, HLD who was admitted for 1. Sepsis with Bacteremia (MSSA) - Source unknown CAITY, TTE showed no evidence of endocarditis 2. Colitis (improved) - seen on CT - patient denies having abdominal pain 3. Diarrhea (improved) - secondary to stool softener v. C.diff 4. Anemia (iron deficiency) - stable - Can be secondary to GI bleed (pt using NSAID at home) - S/p 2U PRBC 5. Esophageal Varices grade III with portal gastropathy and gastritis - seen on EGD (no biopsy taken- pt was on Plavix) 6. Alk phos elevation w/ hepatomegaly - secondary to SPENCER v. fatty liver v. portal vein thrombosis 7. CAD on Plavix 8. Pulm HTN seen on Echo. RSVP: 44 Plan: Will d/c Metoprolol and switch to Nadolol for esophageal varices. Abdominal U/S duplex to rule out portal vein thrombosis. Hep panel and autoimmune work up negative. Consider d/c Plavix for risk of bleeding. Patient had CABG >3yrs ago. Will discuss with PMD and Cardiology. Recommend soft diet. Patient will need elective colonoscopy as outpatient. Possible referral to [facility] for further evaluation of liver. Case seen, discussed and reviewed with Dr. Coe. Nikko Villanueva PGY2 <Josseline Coe V - Last Filed: 02/03/18 17:07> Objective - Vital Signs/Intake and Output Vital Signs (last 24 hours): Temp Pulse Resp BP Pulse Ox 98.5 F 76 20 129/79 99 12/26/17 14:00 12/26/17 14:00 12/26/17 14:00 12/26/17 14:00 12/26/17 14:00 Intake and Output: 12/26/17 12/27/17 18:59 06:59 Intake Total 420 Balance 420 - Labs Labs: 12/25/17 07:00 12/25/17 07:00 PT 14.2 SECONDS (9.4-12.5) H 12/25/17 07:00 INR 1.23 (0.93-1.08) H 12/25/17 07:00 APTT 26.8 Seconds (25.1-36.5) 12/25/17 07:00 Attending/Attestation - Attestation I have personally seen and examined this patient.: Yes I have fully participated in the care of the patient.: Yes I have reviewed all pertinent clinical information, including history, physical exam and plan: Yes Notes (Text): This is an addendum to GI progress report dictated by the Blanket Weaver.The patient was seen and examined earlier. Medical records, lab studies, imagings were reviewed. Last 24 hours events reviewed. Agreed with the above treatment plan as outlined in Blanket Weaver 's notes the with the addition of the following S/p EGD, esophageal varices and portal gastropathy. Will discontinue Metoprolol and change to Nadolol. Abdominal doppler was negative for portal vein. Patient and his daughter, who was at bedside, were explained of EGD findings of cirrhosis and need for follow-up at liver unit at [facility]. They fully understood and they planned to follow-up at liver clinic at [facility]. 12/26/17 23:26 02/03/18 17:02
[2017-12-26] MEDS: Sodium Chloride 0.9% 1,000 ML IV SCH ×2 (08:31→13:43)
[2017-12-26 09:21] VITALS: RESP 20; O2SAT 99
[2017-12-26] MEDS: Insulin Lispro (HUMAlog) HIGH Coverage SC SCH ×2 (10:27→13:42)
[2017-12-26] MEDS: Insulin Lispro (humaLOG) MIX 75/25(10 ml) SC SCH (10:28)
[2017-12-26 15:00] VITALS: BP 129/79; PULSE 76; TEMP 98.5
--- NOTE | 2017-12-26 17:29 | US ---
PROCEDURE: Abdomen Duplex Doppler Ultrasound HISTORY: r/o portal vein thrombosis, esophageal varices EGD COMPARISON: Abdomen pelvis CT examination without contrast 12/18/2017 and abdomen ultrasound 12/17/2017. TECHNIQUE: Sonographic evaluation of the hepatic and portal veins custom performed using duplex and spectral Doppler analysis. FINDINGS: There is normal directional blood flow the portal vein, hepatic artery, inferior vena cava and splenic vein. There is also normal appendix venous blood flow appreciated. The liver remains normal size. Splenomegaly is reiterated to 14.7 cm however. No obvious splenic mass appreciable. IMPRESSION: Normal portal and hepatic venous directional blood flow as well as hepatic arterial blood flow. Splenomegaly reiterated.
--- NOTE | 2017-12-26 23:16 | PN ---
DATE: 12/26/2017 SUBJECTIVE: The patient is in bed, no acute distress, nontoxic, seen early this morning in room 578, bed 2. PHYSICAL EXAMINATION VITAL SIGNS: Temperature is 98, blood pressure is 120/70, respiratory 16. HEENT: Examination of HEENT is unremarkable. NECK: Supple. LUNGS: Have decreased breath sounds. HEART: Normal S1, S2. ABDOMEN: Soft, nontender. LABORATORY DATA: Laboratory examination reveals a white count of 5.9, hemoglobin of 10, platelets of 198. Chemistries reveals a BUN of 19, creatinine of 1.3. Urinalysis is noted. is reviewed. Serology is noted. Microbiology is noted. Blood cultures are negative. Review of orders reveals the patient to be on Ancef. ASSESSMENT AND PLAN: A 57-year-old with sepsis secondary to sensitive Staphylococcus aureus bacteremia, persistent; negative transesophageal echo; coronary artery disease, status post coronary artery bypass graft; pulmonary hypertension; diabetes Today is day #6 between 28 days to 42 days. RECOMMENDATIONS: C-reactive protein, sed rate, CBC, SMA-18 once weekly. Nitesh Ng MD
--- NOTE | 2017-12-27 10:05 | DS ---
HISTORY OF PRESENT ILLNESS: The patient is 57 years old, seen and examined, doing well. No nausea, vomiting, no diarrhea, no fever, no chills, eating and tolerating, no rectal bleeding, no hemoptysis, no hematemesis. The patient had endoscopy done yesterday, found to have esophageal varices. He has hepatomegaly. The patient needed a colonoscopy, but he is on Plavix. I spoke to Dr. Coe. We want to get in touch with the dip lube operator he is back home and see if he recently had stent placed; otherwise, we will have to stop Plavix for a week before going for a colonoscopy. He might need biopsy; however, during this day, he was found to have persistent bacteriemia. His three blood cultures that were positive for Staphylococcus aureus. Urine was negative. Repeat blood culture on 12/21/2017 was negative. The patient had transthoracic echocardiogram done that was negative for endocarditis; however, it was decided to treat him with 6 weeks of antibiotics and he is being discharged home on Ancef. The patient is going home on Ancef for total of six weeks. PHYSICAL EXAMINATION: GENERAL: On examination today, he is awake, alert and oriented, anxious to go home. VITAL SIGNS: He is afebrile. Pulse 80, respirations 20 and blood pressure 150/79. LUNGS: Bilateral good airflow. No rhonchi or crackle. HEART: S1, S2 audible. ABDOMEN: Soft, nontender. No rebound, no guarding. NEUROLOGICAL: The patient is awake, alert, oriented, communicative. Ambulatory. EXTREMITIES: Bilateral legs, no edema. LABORATORY DATA: WBC is 5.9, hemoglobin 10.4, hematocrit 32.5 and platelets 198. PT 14.2, INR 1.23. Chemistry: Sodium 141, potassium 4.1, chloride 105, CO2 27, BUN 19, creatinine 1.6. Blood sugar of 128. Urinalysis is unremarkable. HIV test is negative. Autoimmune test is negative. Hepatitis profile is negative. ASSESSMENT: 1. Bacteremia, source unknown, has Staphylococcus aureus, sensitive to Ancef. 2. Coronary artery disease, status post open heart surgery, not clear if he had followup catheterization done, that is why he is on Plavix. I will discuss this with his daughter to get more information. 3. Status post endoscopy, having grade III esophageal varices, reason for hepatomegaly is not clear. The patient states he is not a drinker. His hepatitis profile is negative, so the differential is nonalcoholic steatohepatitis versus fatty liver. PLAN: Patient is going to be discharged today with prescription of Ancef to be given for four weeks. Home infusion has been established by [employer] [employer]. Blood work will be followed and after we figure out that if he can be taken off of Plavix, we will arrange for colonoscopy as outpatient. Ivan Fung MD
== END 2017-12-26 18:36 | disposition home or self-care (01) | DRG 871 ==
LOC: ED 17:56 → ERH 20:32 → 2RNO 23:26 → 5RSO 12-19 10:55
PROVIDERS: ADMIT Internal Medicine; ATTEND Internal Medicine
PROC: 30233N1 Transfusion of Nonautologous Red Blood Cells into Peripheral Vein, Percutaneous Approach (ICD-10-PCS; 2017-12-16)
PROC: B246ZZ4 Ultrasonography of Right and Left Heart, Transesophageal (ICD-10-PCS; 2017-12-24)
PROC: 0DJ08ZZ Inspection of Upper Intestinal Tract, Via Natural or Artificial Opening Endoscopic (ICD-10-PCS; principal; 2017-12-25 15:15)
DX: A41.01 Sepsis due to Methicillin susceptible Staphylococcus aureus (principal); I81 Portal vein thrombosis; N39.0 Urinary tract infection, site not specified; I85.00 Esophageal varices without bleeding; K76.6 Portal hypertension; K52.9 Noninfective gastroenteritis and colitis, unspecified; I25.118 Atherosclerotic heart disease of native coronary artery with other forms of angina pectoris; I25.2 Old myocardial infarction; I27.20 Pulmonary hypertension, unspecified; K76.0 Fatty (change of) liver, not elsewhere classified; K59.00 Constipation, unspecified; D50.9 Iron deficiency anemia, unspecified; E78.5 Hyperlipidemia, unspecified; E11.9 Type 2 diabetes mellitus without complications; H66.90 Otitis media, unspecified, unspecified ear; I10 Essential (primary) hypertension; Z72.0 Tobacco use; Z79.02 Long term (current) use of antithrombotics/antiplatelets; Z79.4 Long term (current) use of insulin; Z79.899 Other long term (current) drug therapy; Z95.1 Presence of aortocoronary bypass graft; Z98.61 Coronary angioplasty status; R40.2412 Glasgow coma scale score 13-15, at arrival to emergency department; K31.89 Other diseases of stomach and duodenum; K29.70 Gastritis, unspecified, without bleeding